=== PATIENT | female | born 1980 | race African-American/Black ===

== ENCOUNTER 2019-12-21 14:24 | Outpatient (CLI) | payer OTHER, SELFPAY ==
[2019-12-21 15:32] LABS: Free T4 Free Thyroxine 0.99 ng/mL (0.78-2.19)
[2019-12-21 15:49] LABS: HIV 1/2 Ab P24 Ag Result Negative (Negative); Hepatitis C Virus Antibody Negative (Negative)
[2019-12-22 08:43] LABS: Rapid Plasma Reagin Non-Reactive (NonReactive)
[2019-12-22 12:33] LABS: Hepatitis B Surface Antigen Negative (Negative)
[2019-12-24 15:41] LABS: HSV 1 IgM Screen Negative (Negative); HSV 2 IgM Screen Negative (Negative)
== END 2019-12-21 14:25 | disposition home or self-care (01) ==
LOC: ANHLAB 14:26
PROVIDERS: PCP Student in an Organized Health Care Education/Training Program; Visit Provider Student in an Organized Health Care Education/Training Program
DX: E04.9 Nontoxic goiter, unspecified (principal); N89.8 Other specified noninflammatory disorders of vagina
CPT/HCPCS: 36415; 84439; 84443; 86592; 86695; 86696; 86703; 86803; 87340; G0432

== ENCOUNTER 2020-03-12 20:12 | Emergency (ER) | payer OTHER, SELFPAY ==
[2020-03-12 20:14] VITALS: BP 163/95; PULSE 75; RESP 18; TEMP 36.7; O2SAT 100
--- NOTE | 2020-03-12 21:55 | ED.GENADULT ---
HPI - General Adult General Chief complaint: Unspecified Stated complaint: SOMETHING BIT ME Time Seen by Provider: 03/12/20 20:17 History of Present Illness HPI narrative: Patient is a 40-year-old female who presents to the ER with infection to her right jaw. Noticed 2 days ago that she was having pain in the small bump. Since growing in size. She has pain that goes down her right neck gets worse with turning her head to the left. She also notes some bumps under her ear. No fevers or chills or sweats. She has had some mild drainage. Related Data Home Medications Medication Instructions Recorded Confirmed hydrochlorothiazide 50 mg tablet 50 mg PO DAILY 12/21/19 omeprazole 40 mg capsule,delayed 40 mg PO DAILY 12/21/19 release fluticasone propionate INTRANASAL 03/12/20 loratadine mg 03/12/20 sumatriptan succinate mg PO 03/12/20 topiramate 03/12/20 03/12/20 Allergies Allergy/AdvReac Type Severity Reaction Status Date / Time aspirin Allergy Unknown Hives Verified 03/12/20 20:21 ibuprofen Allergy Unknown Hives Verified 03/12/20 20:21 Review of Systems Constitutional: Constitutional: Denies chills, Denies fever(s) and Denies weakness Integumentary/Breasts: Comments: Abscess right jaw PMFSH Past Medical History Medical History (Updated 03/12/20 @ 21:58 by Ky Hollins MD) Acid reflux High blood pressure Thyroid disorder Surgical History Surgical History (Updated 12/21/19 @ 13:57 by Merline Anthony CMA) deliv NOS-unsp History of tubal ligation [place] teeth removed Family History Family History (Updated 12/21/19 @ 13:52 by Lilia Lamar MA) Grandparent Heart disease Diabetes mellitus Mother High cholesterol Exam Narrative: Exam Narrative: GENERAL: Well-appearing, well-nourished, and in no acute distress. HEAD: Normocephalic, atraumatic. ENT: Mucous membranes moist. Abscess right jaw with surrounding cellulitis. NECK: Tender lymphadenopathy in the right cervical chain. NEURO: Alert and oriented x3. PSYCH: Normal mood and affect. Course Vital Signs Vital signs: Vital Signs Temperature 98.1 F 03/12/20 20:14 Pulse Rate 75 03/12/20 20:14 Respiratory Rate 18 03/12/20 20:14 Blood Pressure 163/95 H 03/12/20 20:14 Pulse Oximetry 100 03/12/20 20:14 Temperature 98.1 F 03/12/20 20:14 Pulse Rate 75 03/12/20 20:14 Respiratory Rate 18 03/12/20 20:14 Blood Pressure 163/95 H 03/12/20 20:14 Pulse Oximetry 100 03/12/20 20:14 Procedures Abscess I/D face: Date of Incision: 03/12/20 Time of Incision: 21:40 Side (if applicable): right Local Anesthetic: lidocaine 1% and with epi Amount of anesthesia used (mL): 6 Technique: incised with #11 blade Irrigation: No Packing used?: plain I&D Results: Pus Medical Decision Making Vital Signs Vital Signs: Vital Signs Temperature 98.1 F 03/12/20 20:14 Pulse Rate 75 03/12/20 20:14 Respiratory Rate 18 03/12/20 20:14 Blood Pressure 163/95 H 03/12/20 20:14 Pulse Oximetry 100 03/12/20 20:14 Temperature 98.1 F 03/12/20 20:14 Pulse Rate 75 03/12/20 20:14 Respiratory Rate 18 03/12/20 20:14 Blood Pressure 163/95 H 03/12/20 20:14 Pulse Oximetry 100 03/12/20 20:14 Discharge Plan Discharge Clinical Impression: Abscess Patient Disposition: Home, Self-Care Condition: Stable Instructions: Abscess (ED) Additional Instructions: Return to the ER if you have increased pain, you have worsening drainage, you cannot open your mouth or swallow, give additional concerns. Prescriptions: New hydrocodone-acetaminophen 5-325 mg tablet 1 tablet PO Q6H PRN (Reason: pain) Qty: 10 RF: 0 sulfamethoxazole-trimethoprim [Bactrim DS] 800-160 mg tablet 1 tablet PO Q12H Qty: 20 RF: 0 No Action hydrochlorothiazide 50 mg tablet 50 mg PO DAILY RF: 0 omeprazole 40 mg capsule,delayed release(
[2020-03-12 22:06] VITALS: BP 150/105; PULSE 83; RESP 15; O2SAT 100
== END 2020-03-12 22:00 | disposition home or self-care (01) ==
PROVIDERS: Emergency Provider Emergency Medicine; PCP Student in an Organized Health Care Education/Training Program
DX: M27.2 Inflammatory conditions of jaws (principal); I10 Essential (primary) hypertension
CPT/HCPCS: 10060; 99283; A9270

== ENCOUNTER 2020-04-30 10:54 | Outpatient (CLI) | payer OTHER, SELFPAY ==
--- NOTE | ~2020-04-30 | MM_ITS ---
EXAMINATION: MM screening elsy BI w danielle HISTORY: Screening TECHNIQUE: Craniocaudal and mediolateral oblique 3-D tomosynthesis images were obtained and synthetic 2-D images were generated. CAD analysis was submitted and interpreted. COMPARISON: Comparison to multiple prior studies sequentially, with oldest reviewed study dated 08/2017. BREAST PARENCHYMAL COMPOSITION: There are scattered areas of fibroglandular density. FINDINGS: There is no evidence of suspicious mass, calcification, or architectural distortion to sugg est malignancy in either breast. There has been no suspicious interval change. IMPRESSION: 1. No mammographic evidence of malignancy. 2. Recommend routine screening mammography in one year. BI-RADS Category 1: Negative Reviewed, dictated and finalized at location A.
== END 2020-04-30 10:55 | disposition home or self-care (01) ==
PROVIDERS: PCP Physician Assistant; Visit Provider Physician Assistant
DX: Z12.31 Encounter for screening mammogram for malignant neoplasm of breast (principal)
CPT/HCPCS: 77063; 77067

== ENCOUNTER 2020-08-03 14:41 | Emergency (ER) | payer OTHER, SELFPAY ==
[2020-08-03 14:44] VITALS: BP 163/100; PULSE 75; RESP 18; TEMP 36.3; O2SAT 100
--- NOTE | 2020-08-03 15:21 | ED.SKABFB ---
HPI - Skin/Abscess/Foreign Bdy General Chief complaint: Skin/Abscess/Foreign Body Stated complaint: pain and swelling to left side Time Seen by Provider: 08/03/20 14:55 Source: patient Mode of arrival: ambulatory Limitations: no limitations History of Present Illness HPI narrative: This is a 40 year old female that presents to the ER for abscess x 4 days. Reports a tender area to the left lateral chest. Denies fever or drainage. Related Data Home Medications Medication Instructions Recorded Confirmed omeprazole 40 mg capsule,delayed 40 mg PO DAILY 12/21/19 03/20/20 release fluticasone propionate INTRANASAL 03/12/20 03/20/20 loratadine mg 03/12/20 03/20/20 sumatriptan succinate mg PO 03/12/20 03/20/20 topiramate 03/12/20 03/20/20 acyclovir 08/03/20 ferrous sulfate mg 08/03/20 hydrochlorothiazide 08/03/20 ketoconazole applic TOPICAL 08/03/20 multivitamin with iron tablet 08/03/20 [Tab-A-Rosalba/Iron] Allergies Allergy/AdvReac Type Severity Reaction Status Date / Time aspirin Allergy Unknown Hives Verified 08/03/20 14:55 ibuprofen Allergy Unknown Hives Verified 08/03/20 14:55 Review of Systems Review of Systems: Narrative: CONSTITUTIONAL: Denies fever SKIN: Reports abscess All systems reviewed & are unremarkable except as noted in HPI and below PMFSH Past Medical History Medical History (Updated 08/03/20 @ 16:20 by Lacey Perez PA-C) Acid reflux Arthritis FHx: migraine headaches High blood pressure Thyroid disorder Surgical History Surgical History deliv NOS-unsp History of tubal ligation [place] teeth removed Family History Family History Grandparent Heart disease Diabetes mellitus Mother High cholesterol Social History Social History Smoking status: Former smoker Alcohol intake: current Drinks per week: 2 Gender identity (if verbalized by the patient): Female Exam Narrative: Exam Narrative: GENERAL: Well-appearing, well-nourished, and in no acute distress. HEAD: Normocephalic, atraumatic. EYES: EOMI. EXTREMITIES: Normal range of motion. No edema. Left lateral chest with 6cm area of erythema and induration with central punctum SKIN: Warm, dry, no rash. NEURO: No focal deficits. Alert and oriented x3. PSYCH: Normal mood and affect Course Vital Signs Vital signs: Vital Signs Temperature 97.3 F L 08/03/20 14:44 Pulse Rate 75 08/03/20 14:44 Respiratory Rate 18 08/03/20 14:44 Blood Pressure 163/100 H 08/03/20 14:44 Pulse Oximetry 100 08/03/20 14:44 Temperature 97.3 F L 08/03/20 14:44 Pulse Rate 75 08/03/20 14:44 Respiratory Rate 18 08/03/20 14:44 Blood Pressure 163/100 H 08/03/20 14:44 Pulse Oximetry 100 08/03/20 14:44 Procedures Abscess I/D chest: Date of Incision: 08/03/20 Time of Incision: 16:18 Side (if applicable): left Local Anesthetic: lidocaine 1% and with epi Amount of anesthesia used (mL): 3 Technique: incised with #11 blade Packing used?: none I&D Results: Pus and Blood MDM - Skin/Abscess/Foreign Bdy MDM Narrative Medical decision making narrative: Patient presents to the ER for small abscess to the left lateral chest. She is afebrile and nontoxic appearing. Abscess successfully drained. Will be started on oral antibiotics. Was given warnings to return to the ER Critical Care Time Critical Care Time Critical Care Time: No Discharge Plan Discharge Clinical Impression: Abscess Patient Disposition: Home, Self-Care Condition: Stable Instructions: Antibiotic Form, Abscess (ED) Additional Instructions: Return if symptoms worsen or concerns: any increase in redness, swelling, pain, or fever over 101 Take antibiotics as directed. Clean wound with mild soapy water. Apply antibiotic oin
== END 2020-08-03 16:34 | disposition home or self-care (01) ==
PROVIDERS: Emergency Provider Emergency Medicine; PCP Physician Assistant
DX: L02.213 Cutaneous abscess of chest wall (principal); M19.90 Unspecified osteoarthritis, unspecified site; I10 Essential (primary) hypertension; E07.9 Disorder of thyroid, unspecified; Z87.891 Personal history of nicotine dependence
CPT/HCPCS: 10060; 99283

== ENCOUNTER 2020-12-07 15:45 | Emergency (ER) | payer OTHER, SELFPAY ==
--- NOTE | ~2020-12-07 | CT_ITS ---
EXAMINATION: CT abdomen pelvis wo con DATE: 12/07/2020 16:23 INDICATION: Lower abdominal pain TECHNIQUE: Computed tomography (CT) of the abdomen and pelvis was performed without intravenous contr ast. The dose-length product (DLP) was 191.46 mGy-cm. Automated exposure control and iterative recons truction technique were employed. COMPARISON: 11/05/2012 FINDINGS: The lung bases are clear. The heart size is normal. The liver, spleen, pancreas, gallbladde r, and adrenal glands are normal. There is a 2 mm nonobstructing stone in the upper pole of the right kidney. The left kidney is unremarkable. There is no hydronephrosis or hydroureter. The appendix is normal. No pathologically enlarged abdominal or pelvic lymph nodes are identified. There is no free i ntraperitoneal gas or evidence of bowel obstruction. IMPRESSION: 1. No CT correlate for the patient's symptoms. Reviewed, dictated and finalized at location A.
[2020-12-07 15:47] VITALS: BP 138/89; PULSE 78; RESP 16; TEMP 36.6; O2SAT 100
--- NOTE | 2020-12-07 16:17 | ED.GENADULT ---
HPI - General Adult General Chief complaint: Urogenital-Female Stated complaint: pelvic pain Time Seen by Provider: 12/07/20 15:55 Source: patient and RN notes reviewed Mode of arrival: ambulatory Limitations: no limitations History of Present Illness HPI narrative: Patient is a 40-year-old female who presents to emergency department with right lower quadrant abdominal pain for the last 2 weeks off and on which is worsened today patient saw primary care was reassured but continues to have the pain pain radiates to the right flank patient denies change in bowel habits or hematuria patient on arrival appears uncomfortable but not distressed has not taken anything for her symptoms today Related Data Home Medications Medication Instructions Recorded Confirmed sumatriptan succinate mg PO 03/12/20 03/20/20 topiramate 03/12/20 03/20/20 ferrous sulfate mg 08/03/20 hydrochlorothiazide 08/03/20 fluticasone propionate INTRANASAL 12/07/20 loratadine mg 12/07/20 Allergies Allergy/AdvReac Type Severity Reaction Status Date / Time aspirin Allergy Unknown Hives Verified 12/07/20 15:45 ibuprofen Allergy Unknown Hives Verified 12/07/20 15:45 Review of Systems Review of Systems: All systems reviewed & are unremarkable except as noted in HPI and below PMFSH Past Medical History Medical History (Updated 12/07/20 @ 18:03 by Neymar Adrian PA-C) Acid reflux Arthritis FHx: migraine headaches High blood pressure Thyroid disorder Surgical History Surgical History deliv NOS-unsp History of tubal ligation [place] teeth removed Family History Family History Grandparent Heart disease Diabetes mellitus Mother High cholesterol Social History Social History Smoking status: Former smoker Alcohol intake: current Drinks per week: 2 Gender identity (if verbalized by the patient): Female Exam Narrative: Exam Narrative: GENERAL: Well-appearing, well-nourished, and in no acute distress. HEAD: Normocephalic, atraumatic. EYES: PERRLA and EOMI. ENT: Nares clear, no rhinorrhea or epistaxis. Mucous membranes moist. CHEST: Clear to auscultation. No respiratory distress. No wheezes rales or rhonchi HEART: Regular rate and rhythm. No murmur heard. Normal peripheral pulses. ABDOMEN: Soft, right lower quadrant abdominal tenderness without rebound or guarding, nondistended, normal active bowel sounds. EXTREMITIES: Normal range of motion. No edema. SKIN: Warm, dry, no rash. NEURO: No focal deficits. Alert and oriented x3. PSYCH: Normal mood and affect. Course Course Emergency Course: Patient evaluated emergency department found to have urinary tract infection as late etiology of her symptoms will be discharged with outpatient follow-up ABCs and vital signs intact and stable hydrated and given antibiotics in the emergency department felt appropriate for outpatient reevaluation Vital Signs Vital signs: Vital Signs Temperature 97.9 F 12/07/20 15:47 Pulse Rate 78 12/07/20 15:47 Respiratory Rate 16 12/07/20 15:47 Blood Pressure 138/89 12/07/20 15:47 Pulse Oximetry 100 12/07/20 15:47 Temperature 97.9 F 12/07/20 15:47 Pulse Rate 58 L 12/07/20 16:52 Respiratory Rate 18 12/07/20 16:52 Blood Pressure 125/84 12/07/20 16:52 Pulse Oximetry 100 12/07/20 16:52 Medical Decision Making [facility] Narrative Medical decision making narrative: Patient in the room in no distress aware of case findings treatment plan and diagnosis felt appropriate for outpatient reevaluation Vital Signs Vital Signs: Vital Signs Temperature 97.9 F 12/07/20 15:47 Pulse Rate 78 12/07/20 15:47 Respiratory Rate 16 12/07/20 15:47 Blood Pressure 138/89 12/07/20 15:47 Pulse Oximetry 100 12/07/20 15:47 Temperature 97.9 F 12/07/20 15:
[2020-12-07 16:29] LABS: Hematocrit 32.5 % (37.0-47.0); Hemoglobin 9.8 g/dL (12.0-15.0); Mean Corpuscular HGB Conc 30.2 g/dl (32-36); Mean Corpuscular Volume 79.7 fl (80-100); Mean Platelet Volume 11.2 fl (7.4-10.4); Platelet Count Result 212 k/mm3 (150-375); Red Blood Count 4.08 M/mm3 (4.2-5.4); Red Cell Distribution Width 17.2 % (11.5-14.5); White Blood Count 5.7 K/mm3 (4.5-10.0)
[2020-12-07] MEDS: SODIUM CHLORIDE 0.9% IV 1,000 ML 999 ML IV CONT (16:41)
[2020-12-07 16:45] LABS: Eosinophils Absolute Manual 0.11 K/mm3 (0.02-0.5); Eosinophils Percent Manual 2 % (0-4); Lymphocytes Absolute Manual 1.99 K/mm3 (1.1-4.5); Lymphocytes Percent Manual 35 % (18-44); Monocytes Absolute Manual 0.28 K/mm3 (0.1-0.90); Monocytes Percent Manual 5 % (3-9); Neutrophils Percent Manual 58 % (46-73); Total Cells Counted 100
[2020-12-07 16:49] LABS: Anion Gap 3 mmol/L (8-16); Blood Urea Nitrogen 7 mg/dL (7-17); Calcium 8.7 mg/dL (8.4-10.2); Carbon Dioxide 28 mmol/L (22-30); Chloride 108 mmol/L (98-107); Estimated CRCL calculation 75 ml/min; Estimated Glomerular Filt Rate > 60; Glucose 84 mg/dL (65-105); Potassium 3.5 mmol/L (3.4-5.0); Sodium 139 mmol/L (137-145)
[2020-12-07 16:52] VITALS: BP 125/84; PULSE 58; RESP 18; O2SAT 100
[2020-12-07 16:54] LABS: Ovalocytes 1+ (NORMAL); Platelet Estimate Adequate (Adequate)
[2020-12-07 17:11] VITALS: TEMP 36.6
[2020-12-07 17:46] LABS: Add Urine Microscopic? YES; Appearance Urine Cloudy (Clear); Bacteria Urine Trace /hpf; Bilirubin Urine Negative (Negative); Blood Urine Negative (Negative); Color Urine Yellow (Yellow); Glucose Urine UA Negative (Negative); Ketones Urine Negative (Negative); Leukocyte Esterase Ur 2+ LEU/UL (Negative); Mucus Urine Heavy /lpf; Nitrate Urine Positive (Negative); Protein Urine Negative (Negative); Specific Grav Ur 1.018 (1.001-1.035); Squamous Epithelial Cell Urine Many /hpf (Few); WBC Urine 31-50 /hpf
[2020-12-07 18:14] VITALS: BP 144/89; PULSE 62; RESP 20; O2SAT 100
== END 2020-12-07 18:16 | disposition home or self-care (01) ==
PROVIDERS: Emergency Medicine Emergency Medical Services; Emergency Provider Emergency Medicine; PCP Physician Assistant
DX: N39.0 Urinary tract infection, site not specified (principal); K21.9 Gastro-esophageal reflux disease without esophagitis; M19.90 Unspecified osteoarthritis, unspecified site; I10 Essential (primary) hypertension; E07.9 Disorder of thyroid, unspecified; Z87.891 Personal history of nicotine dependence
CPT/HCPCS: 36415; 74176; 80048; 81001; 85025; 87077; 87086; 87088; 87186; 96365; 96375; 99284; J0131; J0696; J7030

== ENCOUNTER 2020-12-20 11:10 | Outpatient (CLI) | payer OTHER, SELFPAY ==
--- NOTE | ~2020-12-20 | US_ITS ---
EXAMINATION: US pelvic complete w TV EXAM DATE: 12/20/2020 11:03 INDICATION: R10.2 - Pelvic and perineal pain. TECHNIQUE: Pelvic transabdominal and transvaginal sonogram was performed. There are multiple graysca le and Doppler images available for interpretation. Comparison is made to prior examination from 01/02. FINDINGS: Uterus measures 10.4 x 5.4 x 4.5 cm, and is morphologically normal. Endometrial stripe me asures 18 mm, mildly thickened. There is a nabothian cyst. There is no free pelvic fluid. Right adnexa: The ovary measures 2.1 x 2.0 x 1.4 cm and is morphologically normal. Ovarian vascular f low confirmed. Left adnexa: The ovary measures 3.0 x 2.5 x 2.4 cm and is morphologically normal. Ovarian vascular fl ow confirmed. IMPRESSION: Mildly thickened endometrium, probably phasic but consider 6-12 week follow-up pelvic son ogram. Reviewed, dictated and finalized at location B. IMPRESSION: Mildly thickened endometrium, probably phasic but consider 6-12 wee k follow-up pelvic sonogram.
[2020-12-20 12:33] LABS: Hepatitis B Surface Antigen Negative (Negative)
[2020-12-20 12:34] LABS: HIV 1/2 Ab P24 Ag Result Negative (Negative)
[2020-12-20 12:50] LABS: Hepatitis C Virus Antibody Negative (Negative)
[2020-12-23 07:58] LABS: Rapid Plasma Reagin Non-Reactive (NonReactive)
== END 2020-12-20 11:11 | disposition home or self-care (01) ==
PROVIDERS: PCP Physician Assistant; Referring Provider Obstetrics & Gynecology; Visit Provider Student in an Organized Health Care Education/Training Program
DX: R10.2 Pelvic and perineal pain (principal); Z20.2 Contact with and (suspected) exposure to infections with a predominantly sexual mode of transmission
CPT/HCPCS: 36415; 76830; 76856; 86592; 86703; 86803; 87340; G0432

== ENCOUNTER 2021-01-09 11:01 | Outpatient (CLI) | payer OTHER, SELFPAY ==
[2021-01-09 12:12] LABS: HIV 1/2 Ab P24 Ag Result Negative (Negative)
[2021-01-09 12:30] LABS: Hepatitis B Surface Antigen Negative (Negative)
[2021-01-09 12:47] LABS: Hepatitis C Virus Antibody Negative (Negative)
[2021-01-10 09:27] LABS: Rapid Plasma Reagin Non-Reactive (NonReactive)
[2021-01-15 16:32] LABS: HSV 1 IgM Screen Negative (Negative); HSV 2 IgM Screen Negative (Negative)
== END 2021-01-09 11:02 | disposition home or self-care (01) ==
LOC: ANHLAB 11:02
PROVIDERS: PCP Physician Assistant; Visit Provider Student in an Organized Health Care Education/Training Program
DX: Z11.3 Encounter for screening for infections with a predominantly sexual mode of transmission (principal)
CPT/HCPCS: 36415; 86592; 86695; 86696; 86703; 86803; 87340; G0432

== ENCOUNTER 2021-11-05 11:01 | Outpatient (CLI) | payer OTHER, SELFPAY ==
--- NOTE | ~2021-11-05 | XR_ITS ---
EXAMINATION: XR chest 2V DATE: 11/05/2021 11:22 INDICATION: Midline chest pain. TECHNIQUE: Frontal and lateral views of the chest were obtained. COMPARISON: Chest 2 views 06/03/2017, CT abdomen and pelvis 12/07/2020 FINDINGS: The chest demonstrates clear lungs without pneumonia, pleural effusion, or pneumothorax. Th e heart size is normal. IMPRESSION: 1. No acute cardiopulmonary disease. Reviewed, dictated and finalized at location B.
--- NOTE | 2021-11-05 11:29 | ECG_ITS ---
Measurements Intervals [place] Rate: 66 P: 60 MD: 140 QRS: 50 QRSD: 77 T: 11 QT: 405 QTc: 426 Interpretive Statements SINUS RHYTHM BASELINE ARTIFACT NONSPECIFIC ST ABNORMALITY BORDERLINE ECG NO PREVIOUS ECG AVAILABLE FOR COMPARISON Electronically Signed On 11-05-2021 18:05:45 CDT by Nathaniel Carmichael M.D.
== END 2021-11-05 11:02 | disposition home or self-care (01) ==
PROVIDERS: PCP Physician Assistant; Visit Provider Physician Assistant
DX: R07.89 Other chest pain (principal); R94.31 Abnormal electrocardiogram [ECG] [EKG]
CPT/HCPCS: 71046; 93005

== ENCOUNTER 2021-11-18 07:49 | Outpatient (CLI) | payer OTHER, SELFPAY ==
--- NOTE | 2021-11-18 | EST_ITS ---
Patient Info Name: Maddi Vargas Age: 41 years : 1980 Gender: Female Ht: 74 in Wt: 172 lbs BSA: 2.01 m2 HR: 68 bpm BP: 150 / 96 mmHg Heart Rhythm: Sinus Rhythm Exam Date: 11/18/2021 9:35 AM Exam Location: [facility] Patient Status: Outpatient Admit Date: 11/18/2021 Staff Ordering Physician: JohnathanShantal Attending Provider: JohnathanShantal Exercise Technologist: [place] CT Nurse: MARISOL GREER Exam Type: CA stress test treadmill Study Info Indications R07.9 - Chest pain, unspecified A treadmill exercise stress test was performed. Summary 1. Abnormal ST segment depression consistent with myocardial ischemia. Protocol: [facility] ECG Details Stage: REST Duration (min): 0 min : 55 sec Speed (mph): 0.0 Grade (%): 0 HR (bpm): 67 SBP (mmHg): 150 DBP (mmHg): 96 METS: --- Stage: REST Duration (min): 6 min : 3 sec Speed (mph): 0.0 Grade (%): 0 HR (bpm): 88 SBP (mmHg): 150 DBP (mmHg): 96 METS: --- Stage: STAGE 1 Duration (min): 1 min : 0 sec Speed (mph): 1.7 Grade (%): 10 HR (bpm): 110 SBP (mmHg): 150 DBP (mmHg): 96 METS: --- Stage: STAGE 1 Duration (min): 2 min : 0 sec Speed (mph): 1.7 Grade (%): 10 HR (bpm): 135 SBP (mmHg): 150 DBP (mmHg): 96 METS: --- Stage: STAGE 1 Duration (min): 3 min : 0 sec Speed (mph): 1.7 Grade (%): 10 HR (bpm): 141 SBP (mmHg): 172 DBP (mmHg): 81 METS: --- Stage: STAGE 2 Duration (min): 1 min : 0 sec Speed (mph): 2.5 Grade (%): 12 HR (bpm): 151 SBP (mmHg): 172 DBP (mmHg): 81 METS: --- Stage: STAGE 2 Duration (min): 2 min : 0 sec Speed (mph): 2.5 Grade (%): 12 HR (bpm): 158 SBP (mmHg): 183 DBP (mmHg): 81 METS: --- Stage: STAGE 2 Duration (min): 3 min : 0 sec Speed (mph): 2.5 Grade (%): 12 HR (bpm): 163 SBP (mmHg): 183 DBP (mmHg): 81 METS: --- Stage: STAGE 3 Duration (min): 1 min : 0 sec Speed (mph): 3.4 Grade (%): 14 HR (bpm): 168 SBP (mmHg): 169 DBP (mmHg): 81 METS: --- Stage: STAGE 3 Duration (min): 1 min : 25 sec Speed (mph): 3.4 Grade (%): 14 HR (bpm): 172 SBP (mmHg): 169 DBP (mmHg): 81 METS: --- Stage: RECOVERY Duration (min): 0 min : 34 sec Speed (mph): 0.0 Grade (%): 0 HR (bpm): 168 SBP (mmHg): 169 DBP (mmHg): 81 METS: --- Stage: RECOVERY Duration (min): 1 min : 34 sec Speed (mph): 0.0 Grade (%): 0 HR (bpm): 128 SBP (mmHg): 169 DBP (mmHg): 81 METS: --- Stage: RECOVERY Duration (min): 2 min : 34 sec Speed (mph): 0.0 Grade (%): 0 HR (bpm): 109 SBP (mmHg): 180 DBP (mmHg): 82 METS: --- Stage: RECOVERY Duration (min): 3 min : 34 sec
== END 2021-11-18 07:50 | disposition home or self-care (01) ==
LOC: ANHCARD 07:50
PROVIDERS: PCP Physician Assistant; Visit Provider Physician Assistant
DX: R07.89 Other chest pain (principal)
CPT/HCPCS: 93017

== ENCOUNTER 2022-02-17 09:46 | Outpatient (CLI) | payer OTHER, SELFPAY ==
--- NOTE | 2022-02-17 09:50 | ECHO_ITS ---
Patient Info Name: Maddi Vargas Age: 42 years : 1980 Gender: Female Ht: 62 in Wt: 171 lbs BSA: 1.87 m2 HR: 62 bpm BP: 168 / 117 mmHg Technical Quality: Good Exam Date: 02/17/2022 10:21 AM Exam Location: [facility] Patient Status: Outpatient Admit Date: 02/17/2022 Staff Ordering Physician: Glen Calvin DO Policy Issue Clerk: Sudhakar Murphy RDCS Attending Provider: Glen Clavin DO Referring Physician: Nikunj LIANG; Exam Type: CA echo doppler color flow Study Info Indications R06.00 - Dyspnea, unspecified Complete two-dimensional, color flow and Doppler transthoracic echocardiogram is performed. Summary 1. Complete two-dimensional, color flow and Doppler transthoracic echocardiogram is performed. 2. Left ventricular chamber dimension is normal. 3. Left ventricular systolic function is normal, estimated at 55-60%. 4. There is mildly increased left ventricular wall thickness. 5. The left ventricular diastolic function is abnormal. 6. E/e' 11 is mildly elevated. Left Ventricle E/e' 11 is mildly elevated. Left ventricular chamber dimension is normal. Left ventricular systolic function is normal, estimated at 55-60%. There is mildly increased left ventricular wall thickness. The left ventricular diastolic function is abnormal. Right Ventricle Right ventricular chamber dimension is normal. Right ventricular systolic function is normal. Left Atria Left atrial chamber dimension is normal. Right Atria Right atrial chamber dimension is normal. Aortic Valve The aortic valve is trileaflet. There is no aortic valve stenosis. There is no aortic valve regurgitation. Pulmonic Valve There is no pulmonic regurgitation. Mitral Valve There is no mitral valve stenosis. There is no mitral valve regurgitation. Tricuspid Valve There is no tricuspid valve regurgitation. Pericardium/Pleural There is no pericardial effusion. Inferior Vena Cava Normal inferior vena cava with >50% collapse upon inspiration consistent with normal right atrial pressure, 5 mmHg. Aorta The aortic root size at the sinus of Valsalva is normal. Left Ventricular Outflow Tract Name Value Normal LVOT 2D LVOT Diameter 2.0 cm LVOT Doppler LVOT Peak Gradient 3 mmHg LVOT Mean Gradient 2 mmHg LVOT VTI 20 cm LVOT VTI/AV VTI Ratio 1.1 LVOT Stroke Volume 61 ml LVOT CO 3.6 l/min LVOT CI 1.9 l/min/m2 Mitral Valve Name Value Normal MV Doppler MV Peak Gradient 6 mmHg MV Mean Gradient 2 mmHg MV Decel [place] 620 cm/s2 MV PHT
== END 2022-02-17 09:47 | disposition home or self-care (01) ==
LOC: ANHCARD 09:47
PROVIDERS: PCP Physician Assistant; Visit Provider Internal Medicine Cardiovascular Disease
DX: R06.00 Dyspnea, unspecified (principal)
CPT/HCPCS: 93306

== ENCOUNTER 2022-04-03 07:53 | Emergency (ER) | payer OTHER, SELFPAY ==
[2022-04-03] VITALS (13 sets, daily range): BP systolic 114–141; BP diastolic 67–103; PULSE 70–76; RESP 16–67; TEMP 36.4; O2SAT 96–100
--- NOTE | ~2022-04-03 | CT_ITS ---
EXAMINATION: CT abdomen pelvis wo con DATE: 04/03/2022 10:33 INDICATION: Right flank pain TECHNIQUE: Computed tomography (CT) of the abdomen and pelvis was performed without intravenous contr ast. The dose-length product (DLP) was 394.20 mGy-cm. Automated exposure control and iterative recons truction technique were employed. COMPARISON: 12/07/2020 FINDINGS: The lung bases are clear. The heart size is normal. The liver, spleen pancreas, gallbladder , and adrenal glands are normal. The kidneys are unremarkable. No stones are identified in the kidney s, ureters, or bladder. There is no hydronephrosis or hydroureter. There are multiple phleboliths of the pelvis. No pathologically enlarged abdominal or pelvic lymph nodes are identified. There is no fr ee intraperitoneal gas or evidence of bowel obstruction. The appendix is normal. There is mild lumbar spondylosis. IMPRESSION: 1. No CT correlate for the patient's symptoms. Reviewed, dictated and finalized at location B.
--- NOTE | ~2022-04-03 | XR_ITS ---
EXAMINATION: XR hip RT 2V w AP pelvis DATE: 04/03/2022 08:29 INDICATION: One week of nontraumatic right hip pain TECHNIQUE: Anteroposterior view of the pelvis and anteroposterior and frog-leg lateral views of the r ight hip were obtained. COMPARISON: 06/06/2019 FINDINGS: Alignment is normal. No fracture or suspected avascular necrosis. Bilateral hip and sacroiliac joint spaces are normal. Transitional lumbosacral segment. Multiple phleboliths in the pelvis. IMPRESSION: 1. Transitional lumbosacral segment. Otherwise unremarkable pelvis and right hip radiographs. Reviewed, dictated and finalized at location A. IMPRESSION: 1. Transitional lumbosacral segment. Otherwise unremarkable pelvis and right hi p radiographs.
--- NOTE | 2022-04-03 08:51 | ED.BACK ---
HPI - Back Pain/Injury General Chief Complaint: Back Pain/Injury Stated Complaint: right sided lower back pain and knee pain Time Seen by Provider: 04/03/22 08:00 Source: patient and RN notes reviewed Mode of arrival: ambulatory Limitations: no limitations History of Present Illness HPI Narrative: This is a 42 year old female who presents for evaluation of right lower back pain that has been present for over 2 weeks. She reports pain is intermittent, and it is located right lower back and radiates to her right knee. Her pain seem worse with walking and bearin weight. She took tylenol for her pain yesterday. She denies leg weakness, numbness, tingling, abdominal pain, fever, chills, dysuria or hematuria. She denies urinary retention. She denies any fall or trauma. Related Data Home Medications Medication Instructions Recorded Confirmed sumatriptan succinate 100 mg tablet mg PO 03/12/20 03/13/22 topiramate 25 mg tablet 03/12/20 03/13/22 fluticasone propionate 50 intranasal 12/07/20 03/13/22 mcg/actuation nasal spray,suspension loratadine 10 mg tablet mg 12/07/20 03/13/22 acetaminophen 500 mg tablet 500 mg PO Q6H PRN 01/09/21 03/13/22 (Tylenol Extra Strength) Allergies Allergy/AdvReac Type Severity Reaction Status Date / Time aspirin Allergy Unknown Hives Verified 03/13/22 09:10 ibuprofen Allergy Unknown Hives Verified 03/13/22 09:10 Review of Systems Review of Systems: All systems reviewed & are unremarkable except as noted in HPI and below Constitutional: Constitutional: Denies chills, Denies fatigue and Denies fever(s) Cardiovascular: Cardiovascular: Denies chest pain Respiratory: Respiratory: Denies chest congestion and Denies cough Gastrointestinal: Gastrointestinal: Reports abdominal pain, Reports nausea and Denies vomiting Genitourinary: Genitourinary: Denies dysuria and Reports flank pain Musculoskeletal: Musculoskeletal: Reports back pain PMFSH Past Medical History Medical History Acid reflux Arthritis Chest pain FHx: migraine headaches High blood pressure History of gonorrhea Thyroid disorder Surgical History Surgical History deliv NOS-unsp History of tubal ligation [place] teeth removed Family History Family History Grandparent Heart disease Diabetes mellitus Mother High cholesterol Social History Social History Smoking status: Former smoker Alcohol intake: current Drinks per week: 2 Gender identity (if verbalized by the patient): Female Exam Const: General: no acute distress and alert Nutritional Appearance: well nourished Orientation/consciousness: patient oriented x3 Limitations: no limitations HENMT: Ears: external ears normal Eyes: EOM: EOMs intact bilaterally Chest: Chest palpation & inspection: normal inspection of the chest Resp: Effort & Inspection: normal respiratory effort Auscultation: clear to auscultation bilaterally Cardio: Rate: regular rate Rhythm: regular rhythm Heart sounds: no murmurs GI: GI Palp: Yes Soft to palpation, No Tenderness to palpation present (GI), No Guarding due to palpation present (GI) and No Rigid due to palpation Auscultation: normal bowel sounds Skin: General skin exam: normal color Rashes: no rashes Neuro: General: patient oriented x3, moves all extremities and CN's II-XI intact bilaterally Extrem: General: normal to inspection Psych: Mental Status: mental status grossly normal Affect: normal affect Course Reevaluation(s) Reevaluation #1: I have discussed with patient that CT is unremarkable. HEr pain is likely related to sciatica. I Discussed discharge plan. Date: 04/03/22 Time: 11:08 Vital Signs Vital signs: Vital Signs Temperature 97.6 F
[2022-04-03 10:08] LABS: Appearance Urine Cloudy (Clear); Bilirubin Urine 1+ (Negative); Blood Urine 3+ (Negative); Color Urine Amber (Yellow); Glucose Urine UA Negative (Negative); Ketones Urine Trace mg/dL (Negative); Leukocyte Esterase Ur Negative LEU/UL (Negative); Nitrate Urine Negative (Negative); Protein Urine 1+ mg/dL (Negative); Specific Grav Ur 1.025 (1.001-1.035); pH Urine 6.5 (5.0-9.0)
[2022-04-03 10:20] LABS: Mucus Urine Rare /lpf; RBC Urine >75 /hpf (0-2); Squamous Epithelial Cell Urine Occasional /hpf (Few)
[2022-04-03 10:21] LABS: Add Urine Microscopic? YES
== END 2022-04-03 11:47 | disposition home or self-care (01) ==
PROVIDERS: Emergency Provider General Practice; PCP Physician Assistant
DX: M54.41 Lumbago with sciatica, right side (principal); I10 Essential (primary) hypertension; K21.9 Gastro-esophageal reflux disease without esophagitis; M19.90 Unspecified osteoarthritis, unspecified site; E07.9 Disorder of thyroid, unspecified; Z87.891 Personal history of nicotine dependence
CPT/HCPCS: 73502; 74176; 81001; 99284

== ENCOUNTER 2022-05-07 14:31 | Outpatient (CLI) | payer OTHER, SELFPAY ==
[2022-05-07 15:51] LABS: HIV 1/2 Ab P24 Ag Result Negative (Negative)
[2022-05-07 16:35] LABS: Hepatitis B Surface Antigen Negative (Negative)
[2022-05-07 16:52] LABS: Hepatitis C Virus Antibody Negative (Negative)
[2022-05-08 10:18] LABS: Rapid Plasma Reagin Non-Reactive (NonReactive)
[2022-05-14 08:56] LABS: HSV 1 IgM Screen Negative (Negative); HSV 2 IgM Screen Negative (Negative)
== END 2022-05-07 14:32 | disposition home or self-care (01) ==
LOC: ANHLAB 14:32
PROVIDERS: PCP Physician Assistant; Visit Provider Student in an Organized Health Care Education/Training Program
DX: Z11.3 Encounter for screening for infections with a predominantly sexual mode of transmission (principal)
CPT/HCPCS: 36415; 86592; 86695; 86696; 86703; 86803; 87340; G0432

== ENCOUNTER 2022-07-15 10:15 | Outpatient (RCR) | payer OTHER, SELFPAY ==
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
--- NOTE | 2022-09-17 11:59 | PCPTNOTE ---
PHYSICAL THERAPY DISCHARGE 09-17-22 Attending Provider: JOHN Lewis Patient:Maddi Vargas Date of :1980 Mrs. Vargas has not returned for any further treatments since 07/15/2022, therefore she will be discharged at this time. She received 3 PT sessions, from June 25 to 2021 for the diagnosis of lumbago with R sciatica. The goals were not assessed. Thank you for referring Maddi to [facility].
== END 2022-09-22 13:12 | disposition home or self-care (01) ==
LOC: ANHPT 10:15
PROVIDERS: PCP Physician Assistant; Visit Provider Physician Assistant
DX: M54.41 Lumbago with sciatica, right side (principal)
CPT/HCPCS: 97014; 97110; 97140; 97161; 97530; G0283

== ENCOUNTER 2022-09-24 07:45 | Outpatient (RCR) | payer OTHER, SELFPAY ==
--- NOTE | 2022-09-24 16:58 | PTOPDC ---
Assessment and note entered by Olu Barrett, PT Evaluation Information Assessment Status Discharge Diagnosis low back pain Onset Chronic Subjective Information Patient reports she has not had any change in back pain besides for a few minutes after she is off the E-stim machine. She has been inconsistent with her therapy attendance secondary to she has been having to help watch her grandson. Reported Pain Level Pain Score Severe Pain: Maharaj Hoyos Assessment PT Clinical Summary Maddi is a 42 year old female coming into the clinic for low back pain. She has not had any really change in S/S or measurements, but has also not been consistent with attendance. Recommend if available with her insurance getting a TENS unit to help with pain management. Discharged from skilled physical therapy. Plan of Care PT Services Indicated No Treatment Frequency and Discharged from skilled physical therapy. Duration
== END 2022-12-08 08:38 | disposition home or self-care (01) ==
LOC: ANHPT 07:45
PROVIDERS: PCP Physician Assistant; Visit Provider Physician Assistant
DX: M54.41 Lumbago with sciatica, right side (principal)
CPT/HCPCS: 97014; 97140; G0283

== ENCOUNTER 2022-12-18 07:38 | Emergency (ER) | payer OTHER, SELFPAY ==
--- NOTE | ~2022-12-18 | XR_ITS ---
Left Shoulder Technique: AP and scapular Y views were obtained. Clinical History: Pain Findings: No fracture or dislocation is seen. Osseous alignment is anatomic. The glenohumeral and acr omioclavicular joint spaces are preserved. Soft tissues are unremarkable. Impression: Unremarkable left shoulder radiographs. Reviewed, dictated and finalized at [facility]. Impression: Unremarkable left shoulder radiographs.
[2022-12-18 07:44] VITALS: BP 144/86; PULSE 70; RESP 16; TEMP 36.6; O2SAT 100
[2022-12-18 08:10] VITALS: BP 144/100; PULSE 66; RESP 18; O2SAT 100
[2022-12-18] MEDS: ACETAMINOPHEN 500 MG TABLET 1000 MG PO (08:55)
[2022-12-18 10:53] VITALS: BP 129/91; PULSE 64; RESP 18; O2SAT 100
--- NOTE | 2022-12-18 11:07 | ED.UPPEXIN ---
HPI - Extremity Injury (Upper) General Chief Complaint: Extremity Injury, Upper Stated Complaint: window fell on left shoulder. Time Seen by Provider: 12/18/22 08:29 Source: patient and RN notes reviewed Mode of arrival: ambulatory Limitations: no limitations History of Present Illness HPI narrative: This is a 42 year old female who presents for evaluation of left shoulder injury. PAtient states last night a window fell onto her left shoulder. She has been apply ice but she has not taken anything for pain. Her pain is worse movement. She denies numbness or tingling. She also reports yesterday she was walking in closed toe shoes. She reports she felt like something punctured her left foot. She states she was outside in the dark so she was unable to see anything. She went inside and she removed her shoe. She saw small puncture jazmín to left great toe. Related Data Home Medications Medication Instructions Recorded Confirmed sumatriptan succinate 100 mg tablet mg PO 03/12/20 03/13/22 topiramate 25 mg tablet 03/12/20 03/13/22 fluticasone propionate 50 intranasal 12/07/20 03/13/22 mcg/actuation nasal spray,suspension loratadine 10 mg tablet mg 12/07/20 03/13/22 acetaminophen 500 mg tablet 500 mg PO Q6H PRN 01/09/21 03/13/22 (Tylenol Extra Strength) Allergies Allergy/AdvReac Type Severity Reaction Status Date / Time aspirin Allergy Unknown Hives Verified 07/07/22 09:58 ibuprofen Allergy Unknown Hives Verified 07/07/22 09:58 Review of Systems Constitutional: Constitutional: Denies weakness Cardiovascular: Cardiovascular: Denies syncope, Denies rapid heart rate, Denies irregular heart rhythm, Denies leg edema and Denies dyspnea Respiratory: Respiratory: Denies chest congestion, Denies hemoptysis, Denies excessive phlegm production and Denies dyspnea Gastrointestinal: Gastrointestinal: Denies abdominal pain, Denies hematochezia, Denies diarrhea and Denies vomiting Genitourinary: Genitourinary: Denies hematuria and Denies dysuria Musculoskeletal: Musculoskeletal: Reports arthralgias, Denies joint swelling, Denies loss of height and Denies muscle weakness Neurologic: Denies syncope, Denies focal weakness and Denies weakness PMFSH Past Medical History Medical History Acid reflux Arthritis Chest pain FHx: migraine headaches High blood pressure History of gonorrhea Thyroid disorder Surgical History Surgical History deliv NOS-unsp History of tubal ligation Reardan teeth removed Family History Family History Grandparent Heart disease Diabetes mellitus Mother High cholesterol Social History Social History Smoking status: Former smoker Alcohol intake: current Drinks per week: 2 Gender identity (if verbalized by the patient): Female Exam Const: General: no acute distress and alert Nutritional Appearance: well nourished Orientation/consciousness: patient oriented x3 Limitations: no limitations HENMT: Head: normal to inspection Face and sinus: normal facial exam Mouth: Yes Normal oral and palatal mucosa present Eyes: EOM: EOMs intact bilaterally Neck: Neck: normal visual inspection Resp: Effort & Inspection: normal respiratory effort Auscultation: clear to auscultation bilaterally Cardio: Rate: regular rate Rhythm: regular rhythm Skin: General skin exam: normal color Rashes: no rashes Other: on side of left great toe is small puncture more, no bleeding, no drainage, no erythema Neuro: General: patient oriented x3, moves all extremities and CN's II-XI intact bilaterally Extrem: Other: left anterior shoulder tenderness, pain with ROM, no significant swelling or deformity Psych: Mental Status: mental status grossly normal Affec
[2022-12-18] MEDS: TETANUS,DIPHTHERIA,AC PERTUSSIS ADULT (0.5 ML) BOOSTRIX IM (11:15)
[2022-12-18 11:20] VITALS: BP 138/82; PULSE 65; RESP 16; O2SAT 99
== END 2022-12-18 11:20 | disposition home or self-care (01) ==
PROVIDERS: Emergency Provider General Practice; PCP Physician Assistant
DX: S40.012A Contusion of left shoulder, initial encounter (principal); S91.332A Puncture wound without foreign body, left foot, initial encounter; Z23 Encounter for immunization; I10 Essential (primary) hypertension; M19.90 Unspecified osteoarthritis, unspecified site; K21.9 Gastro-esophageal reflux disease without esophagitis; E07.9 Disorder of thyroid, unspecified; Z87.891 Personal history of nicotine dependence; W20.8XXA Other cause of strike by thrown, projected or falling object, initial encounter; W22.8XXA Striking against or struck by other objects, initial encounter
CPT/HCPCS: 73030; 73630; 90471; 90715; 99284; A9270

== ENCOUNTER 2023-03-09 10:24 | Outpatient (CLI) | payer OTHER, SELFPAY ==
--- NOTE | ~2023-03-09 | US_ITS ---
EXAMINATION: US transvaginal DATE: 03/09/2023 13:02 INDICATION: Menorrhagia. Comparison:Ultrasound dated 12/20/2020 TECHNIQUE: Multiple transabdominal and endovaginal sonographic images of the pelvis performed. FINDINGS: The uterus measures 8.7 x 4.8 x 4.5 cm. There are nabothian cysts. The endometrial complex measures 12 mm. The right ovary measures 2.4 x 1.5 x 1.9 cm with normal vascularity. No discrete mass. Left ovary is not visualized. There is no free fluid in the pelvis. There are no abnormal masses seen on either side. IMPRESSION: 1. Mild endometrial thickening measuring 12 mm. Reviewed, dictated and finalized at location L.
--- NOTE | ~2023-03-09 | MR_ITS ---
EXAMINATION: MR lumbar spine wo con DATE: 03/09/2023 11:08 INDICATION: Lumbago. Sciatica. TECHNIQUE: Magnetic resonance imaging (MRI) of the lumbar spine was performed without intravenous con trast. Sequences included sagittal T2-weighted FSE, sagittal T2-weighted FS FSE, sagittal T1-weighted FSE, and axial T2-weighted FSE. COMPARISON: Lumbar spine MRI 12/22/2012 FINDINGS: Bone alignment is normal. Vertebral body heights and intervertebral disc heights are normal . The distal spinal cord signal intensity is normal. The conus medullaris is at L1-L2. The following disc levels are specifically discussed: L1-L2: The disc does not extend beyond the endplate margin. There is mild bilateral facet joint osteo arthritis. There is no neural foraminal stenosis. There is no central canal stenosis. L2-L3: The disc does not extend beyond the endplate margin. There is mild bilateral facet joint osteo arthritis. There is no neural foraminal stenosis. There is no central canal stenosis. L3-L4: The disc is mildly bulging. There is severe right and moderate left facet joint osteoarthritis . There is mild bilateral neural foraminal stenosis. There is no central canal stenosis. L4-L5: The disc does not extend beyond the endplate margin. There is severe bilateral facet joint ost eoarthritis. There is mild bilateral neural foraminal stenosis. There is no central canal stenosis. L5-S1: There is a right foraminal protrusion. There is severe right and mild left facet joint osteoar thritis. There is mild right neural foraminal stenosis. There is no central canal stenosis. IMPRESSION: 1. Mild lumbar spondylosis, stable from 12/22/2012. Reviewed, dictated and finalized at location A.
== END 2023-03-09 10:25 | disposition home or self-care (01) ==
PROVIDERS: PCP Physician Assistant; Visit Provider Physician Assistant
DX: M54.41 Lumbago with sciatica, right side (principal); N92.0 Excessive and frequent menstruation with regular cycle; M47.896 Other spondylosis, lumbar region
CPT/HCPCS: 72148; 76830

== ENCOUNTER 2023-07-15 11:00 | Outpatient (RCR) | payer OTHER, SELFPAY ==
[2023-06-04 11:05] VITALS: BP_SYST 130
--- NOTE | 2023-06-04 11:49 | OPREHPOC ---
Outpatient Therapy Plan of Care This is a Multidisciplinary Plan of Care that may contain components documented by all disciplines (PT, OT, and ST.) PT Problem 1 PT Problem #1 Knowledge Deficit PT Goal 1 Goal 1* indep with HEP PT Problem 2 PT Problem #2 Pain PT Goal 1 Goal 1* pt report pain at worst rating of 6/10 2* pt report with sleeping awaken 1x/night due to shoulder pain PT Problem 3 PT Problem #3 Impaired Range of Motion PT Goal 1 Goal in standing: active ROM of L shoulder: 1* flexion 145' 2* abduction 145' 3* IR- reach behind back, palm to above waist 4* ER-reach towards back of head, palm to back of head PT Problem 4 PT Problem #4 Impaired Strength PT Goal 1 Goal in standing: L shoulder active motion through full , available ROM x 6 reps: 1* flexion 2* abduction 3* IR 4* ER 5* pt report able to use L arm with kitchen tasks
--- NOTE | 2023-06-04 11:49 | PTOPEVAL1 ---
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 She reports onset of pain after an injury to her shoulder, window dropped open and hit her as she was walking by the window. She has been to ER and xray was negative. She reports sleep and activity level is affected by the pain. R hand dominant. With the evaluation: decreased strength and ROM of L shoulder in all motions; most pain increase with abduction and IR of shoulder; guarded with L shoulder, tends to hold with elbow flexed and forearm on her trunk; Skilled PT services are indicated for treatment of L shoulder: modalities to decrease pain; therapeutic exercises to increase strength and ROM with education for HEP and posture/position of shoulder. Plan of Care Interventions Electrical Stimulation,Hot Pack/Cold Pack,Manual Therapy,Neuro Re-education,Patient Education,Therapeutic Activities,Therapeutic Exercise,Ultr
[2023-06-25 10:45] VITALS: BP_SYST 160
--- NOTE | 2023-06-25 11:39 | OPREHPOC ---
Outpatient Therapy Plan of Care This is a Multidisciplinary Plan of Care that may contain components documented by all disciplines (PT, OT, and ST.) PT Problem 1 PT Problem #1 Knowledge Deficit PT Goal 1 Goal 1* indep with HEP Progress Met Comment 06-25-23 progress met goal continue to progress HEP PT Problem 2 PT Problem #2 Pain PT Goal 1 Goal 1* pt report pain at worst rating of 6/10 2* pt report with sleeping awaken 1x/night due to shoulder pain Progress Not Met Comment 06-25-23 progress goals not met continue towards goals PT Problem 3 PT Problem #3 Impaired Range of Motion PT Goal 1 Goal in standing: active ROM of L shoulder: 1* flexion 145' 2* abduction 145' 3* IR- reach behind back, palm to above waist 4* ER-reach towards back of head, palm to back of head Progress Met Comment 06-25-23 progress met goals NEW GOALS: active L shoulder motion in standin* flexion 155' 2* abduction 155' PT Problem 4 PT Problem #4 Impaired Strength PT Goal 1 Goal in standing: L shoulder active motion through full , available ROM x 6 reps: 1* flexion 2* abduction 3* IR 4* ER 5* pt report able to use L arm with kitchen tasks Progress Met Comment 06-25-23 progress met goals NEW GOALS: increase strength L shoulder to improve functional use of arm with home and self care tasks: in standing, through full
--- NOTE | 2023-06-25 11:40 | PTOPPROG ---
Assessment and note entered by Triny Person, PT Evaluation Information Assessment Status Progress Diagnosis L shoulder pain Onset December 18 2022 Subjective Information shoulder is better, can move it and use it more; to in July; am doing the exercises at home; wants to continue therapy to get shoulder stronger; PAIN: achy, heavy anterior L shoulder; pain awakens her 2x/night;can use L arm in the kitchen with tasks pain range in the past week: 3- 7/10; heat, stim, exercises help shoulder pain; take tylenol PRN for pain; Assessment PT Clinical Summary Maddi has received 6 PT sessions. Compared to the initial evaluation: pain decreased from 6-10/10 to 3-710; reported sleeping tolerance from awakening 3x to now 2x/ night due to pain; increased active ROM and strength of all shoulder motions; maximum lift of box from waist/floor height 14# and maximum L hand carry bucket of 14# x 20' walking; continues to have spasms and tenderness over proximal to mid biceps. Education on posture, HEP and pain management. The goals were achieved, except sleeping tolerance Continue PT to progress strengthening, increase ROM and functional use of L arm. Plan of Care Interventions Electrical Stimulation,Hot Pack/Cold Pack,Manual Therapy,Patient Education,Therapeutic Activities,Therapeutic Exercise,Ultrasound,Other Other Interventions taping PT Services Indicated Yes Treatment Frequency and 2x/wk for 3 weeks Duration These treatments will address the objective and functional deficits as defined above. The patient will be advanced safely and appropriately in order for the patient to progress towards his/her prior level of function. Additional exercises will be introduced and as well as a comprehensive home exercise program upon discharge, if needed, ?to ensure carryover of functional gains achieved in the clinic. This treatment plan has been reviewed and agreement upon by the patient.
[2023-07-15 10:50] VITALS: BP_SYST 155
--- NOTE | 2023-07-15 11:36 | PTOPDC ---
Assessment and note entered by Triny Person, PT Discharge Information Assessment Status Discharge Diagnosis L shoulder pain Onset December 18 2022 Subjective Information shoulder is doing good; been doing the exercises; use a heating pad at home; at home, is doing her cooking, cleaning, laundry- except heavy pots and carry big load of laundry down to her basement; goes back to dr in July; she has to come for therapy before she can get an MRI; Reported Pain Level Pain Score Self Report Additional Pain Score Comments pain range of past week 0-4/10; anterior GH joint increase pain: abduction decrease pain: rest, heating pad with sleeping in the recliner, shoulder is OK; when in the bed and roll over, pain in shoulder Assessment PT Clinical Summary Maddi has received 10 PT sessions. Compared to the last progress report: pain has improved from 3-7/10 to 0-4/10; sleeping through the night in her recliner without awakening due to shoulder pain; standing active shoulder flexion and abduction motions with slightly less ROM; resistance exercises with hand weight, remains at 2# with less ROM than previous; max weight lifting bilateral box improved from 14 to 18# and L hand bucket carry for 20' walking, improved from 15 to 20#; education completed for HEP. The goals were partially met. Discharge PT services. She is to continue with her HEP and has a follow up with medical care provider is in a few weeks. Plan of Care PT Services Indicated No
== END 2023-07-15 12:15 | disposition home or self-care (01) ==
LOC: ANHPT 11:00
PROVIDERS: PCP Physician Assistant; Visit Provider Physician Assistant
DX: M25.512 Pain in left shoulder (principal)
CPT/HCPCS: 36415; 86592; 86695; 86696; 86703; 86803; 87350; 97014; 97110; 97140; 97161; 97530; G0283; G0432

== ENCOUNTER 2023-07-15 13:15 | Outpatient (CLI) | payer OTHER, SELFPAY ==
[2023-07-15 15:06] LABS: HIV 1/2 Ab P24 Ag Result Negative (Negative)
[2023-07-15 15:26] LABS: Hepatitis C Virus Antibody Negative (Negative)
[2023-07-16 12:32] LABS: Rapid Plasma Reagin Non-Reactive (NonReactive)
[2023-07-20 15:33] LABS: Hepatitis Be Antigen Nonreactive
== END 2023-07-15 13:16 | disposition home or self-care (01) ==
LOC: ANHLAB 13:16
PROVIDERS: PCP Physician Assistant; Visit Provider Registered Nurse
DX: Z11.3 Encounter for screening for infections with a predominantly sexual mode of transmission (principal)
CPT/HCPCS: 36415; 86592; 86695; 86696; 86703; 86803; 87350; G0432

== ENCOUNTER 2023-09-07 10:14 | Outpatient (CLI) | payer OTHER, SELFPAY ==
--- NOTE | ~2023-09-07 | MM_ITS ---
EXAMINATION: MM screening elsy BI w danielle HISTORY: Screening TECHNIQUE: Craniocaudal and mediolateral oblique 3-D tomosynthesis images were obtained and synthetic 2-D images were generated. CAD analysis was submitted and interpreted. COMPARISON: Comparison to multiple prior studies sequentially, with oldest reviewed study dated 08/2017. BREAST PARENCHYMAL COMPOSITION: Not dense: There are scattered areas of fibroglandular density. FINDINGS: There is no evidence of suspicious mass, calcification, or architectural distortion to sugg est malignancy in either breast. There has been no suspicious interval change. IMPRESSION: 1. No mammographic evidence of malignancy. 2. Recommend routine screening mammography in one year. BI-RADS Category 1: Negative Reviewed, dictated and finalized at location A. NNER
== END 2023-09-07 10:15 | disposition home or self-care (01) ==
PROVIDERS: PCP Physician Assistant; Visit Provider Registered Nurse
DX: Z12.31 Encounter for screening mammogram for malignant neoplasm of breast (principal)
CPT/HCPCS: 77063; 77067

== ENCOUNTER 2023-09-15 08:50 | Outpatient (CLI) | payer OTHER, SELFPAY ==
[2023-09-15 09:30] LABS: Basophils Absolute Auto 0.1 K/mm3 (0.0-0.1); Basophils Percent Auto 1.6 % (0.2-1.2); Eosinophils Percent Auto 0.6 % (0-4.4); Hemoglobin 12.5 g/dL (12.0-15.0); Immature Granulocyte Absolute 0.01 K/mm3 (0.00-0.031); Immature Granulocyte Percent A 0.2 % (0-0.5); Lymphocytes Absolute Auto 2.25 K/mm3 (0.9-3.2); Lymphocytes Percent Auto 45.6 % (18.3-44.2); Mean Corpuscular HGB Conc 31.3 g/dl (32-36); Mean Corpuscular Volume 89.5 fl (80-100); Mean Platelet Volume 12.1 fl (7.4-10.4); Monocytes Absolute Auto 0.5 K/mm3 (0.1-0.6); Monocytes Percent Auto 9.3 % (2.6-8.5); Neutrophils Absolute Auto 2.1 K/mm3 (1.3-6.7); Neutrophils Percent Auto 42.7 % (45.5-73.1); Platelet Count Result 198 k/mm3 (150-375); Red Blood Count 4.47 M/mm3 (4.2-5.4); Red Cell Distribution Width 13.1 % (11.5-14.5); White Blood Count 4.9 K/mm3 (4.5-10.0)
[2023-09-15 09:46] LABS: Alanine Aminotransferase 17 U/L (6-35); Albumin Level 4.4 g/dL (3.5-5.1); Alkaline Phosphatase 55 U/L (38-126); Anion Gap 1 mmol/L (8-16); Aspartate Amino Transferase 25 U/L (14-36); Bilirubin,Total 0.8 mg/dL (0.2-1.3); Blood Urea Nitrogen 9 mg/dL (7-17); Calcium 9.5 mg/dL (8.4-10.2); Carbon Dioxide 30 mmol/L (22-30); Chloride 109 mmol/L (98-107); Cholesterol 121 mg/dL (0-200); Estimated Glomerular Filt Rate > 60; Glucose 94 mg/dL (65-110); HDL Direct 42 mg/dL; Potassium 4.3 mmol/L (3.4-5.0); Sodium 140 mmol/L (137-145); Triglycerides 104 mg/dL (<150)
[2023-09-15 09:56] LABS: LDL Cholesterol Direct 66 mg/dL
[2023-09-15 10:34] LABS: Thyroid Stimulating Hormone Reflex 0.968 uIU/mL (0.465-4.68)
== END 2023-09-15 08:51 | disposition home or self-care (01) ==
LOC: ANHLAB 08:51
PROVIDERS: PCP Physician Assistant; Visit Provider Internal Medicine Cardiovascular Disease
DX: I10 Essential (primary) hypertension (principal)
CPT/HCPCS: 36415; 80053; 80061; 84443; 85025

== ENCOUNTER 2024-01-14 13:56 | Outpatient (CLI) | payer OTHER, SELFPAY ==
--- NOTE | ~2024-01-14 | XR_ITS ---
XR knee LT 3V Ordering provider: Shantal Mann, PA History: . Pain in rt knee, chronic . Comparison: None. FINDINGS: BONES: No acute fracture or dislocation. JOINT SPACES: Normal. SOFT TISSUES: Normal. IMPRESSION: No acute osseous abnormality left knee. Reviewed, dictated and finalized at location A.
--- NOTE | ~2024-01-14 | XR_ITS ---
XR knee RT 3V Ordering provider: Shantal Mann, PA History: . Pain in rt knee, chronic . Comparison: None. FINDINGS: BONES: No acute fracture or dislocation. JOINT SPACES: Normal. SOFT TISSUES: Normal. IMPRESSION: No acute osseous abnormality right knee. Reviewed, dictated and finalized at location A.
== END 2024-01-14 13:57 | disposition home or self-care (01) ==
PROVIDERS: PCP Physician Assistant; Visit Provider Physician Assistant
DX: M25.561 Pain in right knee (principal); M25.562 Pain in left knee
CPT/HCPCS: 73562

== ENCOUNTER 2024-04-14 09:00 | Outpatient (RCR) | payer OTHER, SELFPAY ==
--- NOTE | 2024-01-27 09:56 | OPREHPOC ---
Outpatient Therapy Plan of Care This is a Multidisciplinary Plan of Care that may contain components documented by all disciplines (PT, OT, and ST.) PT Problem 1 PT Problem #1 Knowledge Deficit PT Goal 1 Goal Stone with HEP Target Visit 4 PT Problem 2 PT Problem #2 Impaired Range of Motion PT Goal 1 Goal Demonstrate 130 degrees of L knee flexion for improved functional joint motion Target Visit 8 PT Problem 3 PT Problem #3 Impaired Flexibility PT Goal 1 Goal Demonstrate minimal piriformis restriction bilaterally to reduce hip rotation restriction and improve knee alignment Target Visit 8 PT Problem 4 PT Problem #4 Impaired Strength PT Goal 1 Goal Improve meseret knee extension strength to 4+/5 to improve stability with gait and stair climbing Target Visit 8 PT Goal 2 Goal Patient will demonstrate ability to walk straight line without significant lateral deviation
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
--- NOTE | 2024-02-16 12:08 | PCPTNOTE ---
Pt canceled due to weather.
--- NOTE | 2024-03-17 10:14 | PCPTNOTE ---
Pt cancelled he appt stating she could not make it.
--- NOTE | 2024-03-24 13:53 | PCPTNOTE ---
pt called and canceled today's reeval. Reschedule date of 04-14-24.
--- NOTE | 2024-04-14 09:46 | PTOPDC ---
Assessment and note entered by Triny Person, PT Discharge Report Assessment Status Discharge ICD-10 Condition Codes (PT) M25.561,Pain in left knee M25.562 Onset January 2023 Subjective Information therapy helping some what; weather makes a differnence in her pain-- rainy day like today makes her hurt more; have been doing the exercises at home; have not had any falls; Reported Pain Level Pain Score Self Report Additional Pain Score Comments pain in both knees and back; also have hip pain; pain range in the past week: 3-10/10; increase pain: sitting for about 1 hour; standing /walking tolerance 25 minutes then have to sit down decrease pain: heating pad, stretching knee; Assessment PT Clinical Summary Maddi has received 6 PT sessions from January 26 to today. She called and canceled 3 scheduled appointments. Compared to the initial evaluation: pain rating now 3-10/10 in both knees; also reports pain in her hips and back; reported tolerances with walking 25 minutes and sitting 1 hour; self assessment LE functional scale rating from 75 to 35% limitation in activity level; increase strength of hips and knees with increase flexibility of knees to 0-130' active motion and increase piriformis ROM. Education for HEP and pain control completed. The goals were partially met. Discharge from PT. She is to continue with her HEP. Plan of Care PT Services Indicated No
== END 2024-04-14 11:07 | disposition home or self-care (01) ==
LOC: ANHPT 09:00
PROVIDERS: PCP Physician Assistant; Visit Provider Physician Assistant
DX: M25.561 Pain in right knee (principal)
CPT/HCPCS: 97014; 97110; 97161; 97530; G0283

== ENCOUNTER 2025-05-18 09:47 | Outpatient (CLI) | payer OTHER, SELFPAY ==
[2025-05-18 10:20] LABS: Hematocrit 37.2 % (37.0-47.0); Hemoglobin 11.6 g/dL (12.0-15.0); Immature Granulocyte Percent A 0.2 % (0-0.5); Lymphocytes Absolute Auto 2.20 K/mm3 (0.9-3.2); Mean Corpuscular HGB Conc 31.2 g/dl (32-36); Mean Corpuscular Hemoglobin 26.5 pg (26-34); Mean Corpuscular Volume 84.9 fl (80-100); Nucleated Red Blood Cells Absolute Auto 0.000 K/mm3 (0.0-0.012); Nucleated Red Blood Cells Perc 0.0 % (0.0-0.2); Platelet Count Result 212 k/mm3 (150-375); Red Blood Count 4.38 M/mm3 (4.2-5.4); White Blood Count 5.6 K/mm3 (4.5-10.0)
--- OUTSIDE RECORDS SUMMARY | 2025-05-18 10:21 | XMS_ITS | Clinical Summary ---
Author Organization [facility] Address [address] [place] [address] Care Team Providers Care Robotic Maintenance Technician Name Role Phone Tyra Perkins APRN-MESSAGE CLERK Primary Care Provider + Source Comments [facility],non-owned Affiliates and Associated Physician Practices is amultiple site organization consisting of ambulatory clinics and hospital sitesin [place], [place], [place] and [place]. This disclosure is being madepursuant to the Care Everywhere program and may not contain all information available regarding this patient. Last updated 18.[facility] Allergies Active Allergy Reactions Criticality Noted Date Comments Aspirin Anaphylaxis High 03/29/2019 Ibuprofen Anaphylaxis High 03/29/2019 Medications * Be aware that medications may not be up to date on this document. Alwaysverify current medications with the patient. fluticasone propionate (FLONASE) 50 MCG/ACT nasal spray 9 Active hydroCHLOROthiaz demetri (MICROZIDE) 12.5 MG capsule 9 Active hydrocortisone (HYTONE) 1 % cream 9 Active omeprazole (PRILOSEC) 20 MG capsule 9 Active Acetaminophen (TYLENOL) 325 MG CAPS Active SUMAtriptan (Imitrex) 100 MG tabletIndication s:Intractable chronic migraine without aura and without status migrainosus TAKE MEDICATION AT THE ONSET OF MIGRAINE, MAY REPEAT IN 2 HOURS 9 tablet 11 3 Active topiramate (Topamax) 25 MG tabletIndication s:Migraine Take 1 (one) tablet by mouth 2 times daily Reasons: Migraine Headache 180 tablet 3 5 Active Active Problems No known active problems Social History Tobacco Use Types Packs/Day Years Used Date Smoking Tobacco: Former Cigarettes S tarted: 2010 Smokeless Tobacco: Never Tobacco Cessation:Counseling Given: Not Answered Alcohol Use Standard Drinks/Week Comments Yes 0 (1 standard drink = 0.6 oz pur e alcohol) Comments Unknown Sex and Gender Information Value Date Recorded Sex Assigned at Not on file Legal Sex Female 9:59 AM CDT Gender Identity Not on file Sexual Orientation Not on file Last Filed Vital Signs Vital Sign Reading Time Taken Comments Blood Pressure 129/93 03/07/2020 10:39 AM CDT Pulse 71 03/07/2020 10:39 AM CDT Temperature 36.2 C (97.2 F) 03/07/2020 10:39 AM CDT Respiratory Rate - - Oxygen Saturation 99% 03/07/2020 10:39 AM CDT Inhaled Oxygen Concentration - - Weight 79.4 kg (175 lb) 03/07/2020 10:39 AM CDT Height 157.5 cm (5' 2) 03/07/2020 10:39 AM CDT Body Mass Index 32.01 03/07/2020 10:39 AM CDT Plan of Treatment Health Maintenance Due Date Last Done Comments COLOGUARD (AGES 45-75) - COL ON CA SCREENING 1978 COLON MONITORING 1978 COLONOSCOPY - COLON CA SCREENING 1978 CT COLONOGRAPHY - COLON CA SCREENING 1978 Colorectal Cancer Screening 1978 FIT - COLON CA SCREENING 1978 FLEX SIG - COLON CA SCREENING 1978 LIPID TESTING 1978 MAMMOGRAM 1978 HIV SCREENING 1993 HEPATITIS C SCREENING 02/10/1996 DTAP/TDAP/TD VACCINES (1 - Tdap) 1997 HEPATITIS B VACCINE (1 of 3 - 19+ 3-dose series) 1997 PAP SMEAR 1999 DEPRESSION SCREENING 07/19/2024 COVID-19 VACCINE (1 - 2023-2 5 season) 2025 INFLUENZA VACCINE (#1) 2025 ZOSTER VACCINE (1 of 2) 02/15/2028 HIB VACCINE Aged Out No longer eligi ble based on patient's age to complete this topic HPV VACCINE Aged Out No longer eligi ble based on patient's age to complete this topic MENINGOCOCCAL (Group B) VACC INE SHARED DECISION-MAKING Aged Out No longer eligibl e based on patient's age to complete this topic MENINGOCOCCAL GROUPS A/C/Y/W VACCINE Aged Out No longer eligible b ased on patient's age to complete this topic PNEUMOCOCCAL VACCINE Aged Out No long er eligible based on patient's age to complete this topic Insurance [facility] Care Teams Robotic Maintenance Technician Relationship Specialty Start Date End Date Tyra Perkins APRN-CONCEPCION [address] [place], [place] [phone] PCP - General Nurse Practitioner 04/16/19
--- OUTSIDE RECORDS SUMMARY | 2025-05-18 10:21 | XMS_ITS | Encounter Summary ---
Author Organization [facility] Address [address] [place] [address] Care Team Providers Care Editor City Name Role Phone Tyra Perkins Primary Care Provider + Encounter Details Date Type Department Care Team (Late st Contact Info) Description 06/09/2019 Telephone [facility] [address] [address] Angelica Castaneda MD [address] [place] [address] Social History Tobacco Use Types Packs/Day Years Used Date Smoking Tobacco: Never Smokeless Tobacco: Never Alcohol Use Standard Drinks/Week Comments Yes 0 (1 standard drink = 0.6 oz pur e alcohol) Comments Unknown Sex and Gender Information Value Date Recorded Sex Assigned at Not on file Legal Sex Female 9:59 AM CDT Gender Identity Not on file Sexual Orientation Not on file documented as of this encounter Miscellaneous Notes * Telephone Encounter - Angelica Castaneda MD - 06/09/2019 10:43 AM CST Called patient to inform her that her audiogram was received and showed normal hearing thresholds bilaterally. Informed her that she will not require hearing augmentation. She is free to return for follow up as needed. Angelica Castaneda PGY 5 06/09/2019 10:46 AM TROOM REPORTER documented in this encounter Plan of Treatment Not on file documented as of this encounter Visit Diagnoses Not on filedocumented in this encounter Care Teams Editor City Relationship Specialty Start Date End Date Tyra Perkins APRN-CNP [address] [place], [place] [phone] PCP - General Nurse Practitioner 04/16/19 documented as of this encounter
[2025-05-18 10:44] LABS: Alanine Aminotransferase 19 U/L (6-35); Albumin Level 4.3 g/dL (3.5-5.1); Alkaline Phosphatase 67 U/L (38-126); Anion Gap 6 mmol/L (4-12); Aspartate Amino Transferase 25 U/L (14-36); Bilirubin,Total 0.9 mg/dL (0.2-1.3); Blood Urea Nitrogen 12 mg/dL (7-17); Calcium 9.0 mg/dL (8.4-10.2); Carbon Dioxide 29 mmol/L (22-30); Chloride 105 mmol/L (98-107); Cholesterol 123 mg/dL (0-200); Estimated Glomerular Filt Rate > 60; Glucose 99 mg/dL (65-110); HDL Direct 38 mg/dL; Potassium 4.2 mmol/L (3.4-5.0); Sodium 140 mmol/L (137-145); Total Protein 7.4 g/dL (6.3-8.2); Triglycerides 72 mg/dL (<150)
[2025-05-18 10:54] LABS: Hemoglobin A1C 5.6 % (<5.7)
[2025-05-18 11:10] LABS: MALB Creatinine Ratio 5.0 mg/g (0-30)
[2025-05-18 11:54] LABS: Thyroid Stimulating Hormone Reflex 1.090 uIU/mL (0.465-4.68)
[2025-05-18 11:55] LABS: Vitamin B12 627.0 pg/mL (239-931)
[2025-05-18 12:48] LABS: Syphilis IgG/IgM Antibody Non-Reactive (Nonreactive)
[2025-05-18 12:50] LABS: Thyroid Stimulating Hormone Reflex 1.070 uIU/mL (0.465-4.68)
[2025-05-18 12:51] LABS: Hepatitis B Surface Antigen Negative (Negative)
[2025-05-18 13:01] LABS: HIV 1/2 Ab P24 Ag Result Negative (Negative)
== END 2025-05-18 09:48 | disposition home or self-care (01) ==
PROVIDERS: Nurse Practitioner Obstetrics & Gynecology; PCP Physician Assistant; Visit Provider Internal Medicine
DX: Z00.00 Encounter for general adult medical examination without abnormal findings (principal); Z11.3 Encounter for screening for infections with a predominantly sexual mode of transmission
CPT/HCPCS: 36415; 80053; 80061; 82043; 82306; 82607; 82746; 83036; 84443; 85025; 86593; 86703; 86803; 87340; G0432

== ENCOUNTER 2025-05-28 14:45 | Outpatient (CLI) | payer OTHER, SELFPAY ==
--- OUTSIDE RECORDS SUMMARY | 2025-05-28 14:51 | XMS_ITS | Clinical Summary ---
Author Organization [facility] [employer] Address [address] [place] [address] Care Team Providers Care Intake Counselor Name Role Phone Tyra Perkins APRN-MIXING AND MOLDING MACHINE OPERATOR Primary Care Provider + Source Comments [facility],non-owned Affiliates and Associated Physician Practices is amultiple site organization consisting of ambulatory clinics and hospital sitesin [place], [place], [place] and [place]. This disclosure is being madepursuant to the Care Everywhere program and may not contain all information available regarding this patient. Last updated 18.[facility] [employer] Allergies Active Allergy Reactions Criticality Noted Date [...] patient's age to complete this topic Insurance [employer] Care Teams Intake Counselor Relationship Specialty Start Date End Date Tyra Perkins APRN-CONCEPCION [address] [place], [place] [phone] PCP - General Nurse Practitioner 04/16/19
--- OUTSIDE RECORDS SUMMARY | 2025-05-28 14:51 | XMS_ITS | Encounter Summary ---
Author Organization [facility] Address [address] [place] [address] Care Team Providers Care Medical Records Director Name Role Phone Tyra Perkins Primary Care Provider + Encounter Details Date Type Department Care Team (Late st Contact Info) Description 06/09/2019 Telephone [facility] [address] [address] Angelica Castaneda MD [address] [place] [address] Social History Tobacco Use Types Packs/Day Years [...] Angelica Castaneda PGY 5 06/09/2019 10:46 AM RVISOR BAKING documented in this encounter Plan of Treatment Not on file documented as of this encounter Visit Diagnoses Not on filedocumented in this encounter Care Teams Medical Records Director Relationship Specialty Start Date End Date Tyra Perkins APRN-CNP [address] [place], [place] [phone] PCP - General Nurse Practitioner 04/16/19 documented as of this encounter
--- OUTSIDE RECORDS SUMMARY | 2025-05-28 14:52 | XMS_ITS | Data Portability ---
Author Organization [facility] Kim Mancia Address [address] [place] [address] Care Team Providers [facility] Drill Operator Name Role Phone OCTAVIO LEES Voicer SHANTAL ROMO Primary Care Provider Unavailabl e Assessment Encounter Date Assessment Date Assessment LastModified by Organization Details LastModified Time 03/16/2024 03/16/2024 she states she h as colonoscopy and saw cardiology, will request records Not available 03/16/2024 11:40:38 04/25/2025 04/25/2025 --- --- Investigations/Theresa gnostic Tests: [List in-office diagnostic tests performed during visit with results, if nothing performed, list None] - Urinalysis collected in office, pending results. MRI Lumbar Spine (date unknown): Multilevel degenerative disc disease and facet arthropathy, most pronounced at L3-4, L4-5, and L5-S1, with right-sided neural foraminal narrowing and nerve root impingement at these levels. X-ray Knee 12/2023: No acute osseous abnormality. X-ray Knee 2017: Minimal osteophytes noted. Assessment / Plan 1. CORONARY ARTERY DISEASE Status:Chronic, stable but symptomatic condition with ongoing shortness of breath on exertion, representing a moderate complexity of management due to the need for further cardiac evaluation. Diagnosed via abnormal stress test in 2021. Summary:History of abnormal stress test with persistent exertional dyspnea. Was taken off losartan and started on amlodipine by cardiology. Cardiology follow-up has lapsed. A recommended cardiac CTA was never performed. Plan: - Will provide a trial of an albuterol inhaler to assess for a reversible obstructive component to their dyspnea. - Refer back to Cardiology for re-evaluation, to consider repeat stress test and/or cardiac CTA given persistent symptoms. - Continue atorvastatin for secondary prevention. - Continue amlodipine. Discussed taking BP at home with arm relaxed at heart level. 2. HYPERTENSION Status:Chronic, uncontrolled condition. Complexity is moderate due to being out of medication and elevated BP in office. Patient has been out of their blood pressure medication. BP in office today is 150/88. They were switched from losartan to amlodipine by their neighborhood conservation officer, but the rationale is unclear. - Restart amlodipine 5 mg daily. - Patient advised to monitor BP at home and bring log to next appointment. - Will review chart further to understand medication change from losartan to amlodipine. 3. MIGRAINE, CHRONIC, WITHOUT AURA: Status:Chronic, active, and uncontrolled due to being out of medication. Symptoms are frequent (3x/week) and impact quality of life. This is a moderate complexity problem. Patient has been out of both their prophylactic (topiramate) and abortive (sumatriptan) migraine medications. Headaches remain frequent and debilitating. - Refill Topiramate 25 mg BID. - Refill Sumatriptan 100 mg PRN for migraines. - Amlodipine, refilled for HTN, may also provide some prophylactic benefit for migraines. 4. DEPRESSION Status: Chronic, poorly controlled. Patient reports significant depressive symptoms (8/10) in the context of major life stressors and poor social support. Low complexity problem with plan for medication initiation. Patient has a history of depression and was prescribed sertraline in January 2025 but did not initiate treatment. Reports current mood at 8/10 severity. - Re-send prescription for Sertraline. Advised that this can also help with migraines. - Encouraged counseling. 5. IRON DEFICIENCY ANEMIA Status: Chronic, untreated problem. Patient has been out of iron supplements. Condition is exacerbated by menorrhagia. This is a low complexity problem. Patient has a documented low ferritin (11 in 07/2023) and has been out of medication. Reports ongoing heavy menses. - Refill Ferrous Sulfate. - Instructed to take iron every other day at lunchtime to improve absorption. - Advised to take with a source of Vitamin C (other than orange juice due to allergy) and to separate from other medications by at least 2 hours, and famotidine by taking on alternate days. 6. CHRONIC LOW BACK PAIN WITH RIGHT RADICULOPATHY Status: Chronic, active condition with significant symptoms, particularly in cold weather. Imaging confirms multilevel degenerative changes with nerve impingement. This is a moderate complexity problem. Patient has significant multilevel lumbar degenerative disc disease, facet arthropathy, and neural foraminal narrowing causing chronic pain and right-sided sciatica. - Continue current management (not specified). Will address pain management options at future visit. 7. GASTROESOPHAGEAL REFLUX DISEASE WITH DYSPHAGIA Status: Chronic, long-standing problem (dysphagia ~10 years). The presence of dysphagia is a red flag symptom requiring further investigation, representing moderate complexity. Patient has long-standing dysphagia, a potential complication of chronic, untreated GERD. - Continue famotidine once daily. Advised to take on alternate days from iron supplement. - Refer to Gastroenterology for EGD to evaluate chronic dysphagia. 8. ALLERGIC RHINITIS Status: Chronic, stable. - Refill Flonase nasal spray as requested. 9. URINARY FREQUENCY Status: Acute on chronic problem of 5 months duration, etiology unclear. This is a low complexity problem requiring initial workup. - Urinalysis obtained in-office to rule out UTI. Will treat with antibiotics if indicated and send for culture and sensitivity. 10. SUSPECTED OBSTRUCTIVE SLEEP APNEA Status: Suspected, undiagnosed. Patient snores and had an incomplete sleep study in the past. This is a low complexity problem for now. - Refer for sleep medicine consultation and sleep study. Health Maintenance - Bloodwork: Will order CBC, CMP, lipid panel, TSH, HbA1c, Ferritin, Vitamin D. Patient advised to check with their insurance about covered lab facilities. - Follow up: RTC in 3 months for follow up. Will contact sooner if any lab results are critically abnormal. - Shoulder pain: Deferred full evaluation to next visit to ensure adequate time. HTN-quality measure/or test#1-BP check at home-plan/action/o rder/due date (ongoing) CAD-quality measure/or test#2-Cardiology referral-plan/acti on/order/due date (ordered today) Depression-quality measure/or test#3-PHQ-9 at next visit-plan/action/ order/due date (due in 3 months) - Medication list and allergies reviewed and updated TASK LIST 1. E-prescribe Amlodipine 5mg, 90-day supply. 2. E-prescribe Atorvastatin, 90-day supply. 3. E-prescribe Sumatriptan 100mg, #9, PRN headaches. 4. E-prescribe Topiramate 25mg BID, 90-day supply. 5. E-prescribe Sertraline. 6. E-prescribe Ferrous sulfate, take every other day. 7. E-prescribe Famotidine, take once daily on days not taking iron. 8. E-prescribe Flonase nasal spray. 9. E-prescribe Albuterol MDI. 10. Order Labs: CBC, CMP, Lipids, TSH, HbA1c, Ferritin, Vit D. 11. Place referral to Cardiology. 12. Place referral to Gastroenterology for EGD. 13. Place referral to Sleep Medicine for sleep study. 14. Check urinalysis results. 15. Follow up in 3 months. [email or web address] Not available 04/26/2025 16:03:07 Plan of Treatment Reminders Order Date Submit Date Provider Last Modified By Organization Details Last Modified Time Details Appointments ANY 30 2025 10:00A M Rebeka Krishna MD Not available Not available Not available Lab urinalysi s, dipstick 2024 025 [email or web address] In-Office Order, Internal Use Only DO Not Attach Compendium DO Not Attach Compendium, Do Not Delete/merge, [id number] 04/26/2025 16:00:07 HbA1c (hemoglob in A1c), blood 2024 025 [facility] (Lab), [address] [place], [address], 05/22/2025 11:14:29 TSH, serum, reflex free T4 2024 025 [facility] (Lab), [address] [facility], [place], [address], 05/22/2025 11:15:19 CMP, serum or plasma 2024 025 [facility] (Lab), [address] [facility], [place], [address], 05/18/2025 12:22:56 lipid panel, serum 2024 025 [facility] (Lab), [address], [place], [address], 05/18/2025 12:23:39 vitamin B12 + folate, serum or blood 2024 025 [facility] (Lab), [address], [place], [address], 05/22/2025 11:14:55 vitamin D, 25-hydrox y, total, serum 2024 025 [facility] (Lab), [address], [place], [address], 05/18/2025 15:54:38 CBC w/ auto diff 2024 025 karina [facility] (Lab), [address], [place], [address], 05/18/2025 12:23:30 microalbu min/creat inine, mass ratio, urine 2024 025 [facility] (Lab), [address], [place], [address], 05/22/2025 11:15:49 HIV 1 + 2, meaningfu l use set 2024 025 [facility], [address], [place], [address], 02/13/2025 12:12:28 RPR (rapid plasma reagin), serum 2024 025 [place] [facility], [address], [place], [address], 02/03/2025 05:10:18 Hepatitis C IgG Ab, qual, serum 2024 025 [facility], [address], [place], [address], 02/03/2025 05:10:17 chlamydia trachomat is + neisseria gonorrhoe ae + trichomon as vaginalis rRNA panel, LATHA+probe 2024 025 [facility] Lehman, [address], [place], [address], 02/13/2025 12:12:26 CMP, serum or plasma 2024 025 [facility] Lehman, [address], [place], [address], 02/02/2025 08:21:37 lipid panel, serum 2024 025 TIMRE[facility] Lehman, [address], [place], [address], 02/02/2025 08:21:36 albumin/c reatinine , mass ratio, urine 2024 025 TIM Lehman, [address], [place], [address], 02/13/2025 12:12:25 HbA1c (hemoglob in A1c), blood 2023 024 TIM Lehman, [address], [place], [address], 07/30/2023 17:09:59 CMP, serum or plasma 2023 024 TIM Lehman, [address], [place], [address], 07/29/2023 20:12:15 lipid panel, serum 2023 024 TIM Lehman, [address], [place], [address], 07/29/2023 20:12:14 iron + total iron-bind ing capacity (TIBC), serum 2023 024 TIM Lehman, [address], [place], [address], 07/30/2023 17:09:58 CBC w/ auto diff 2023 024 TIM [facility], [address], [place], [address], 07/29/2023 20:12:15 ferritin, serum or plasma 2023 024 TIM [facility], [address], [place], [address], 07/30/2023 17:09:59 Referral gastroent erologist referral 2024 025 karina Lees MD, [address], [place], [address], 05/28/2025 14:59:11 cardiolog ist referral 2024 025 karina Calvin , [address], [address], [place], [address], 05/28/2025 15:50:35 sleep medicine referral [address] [facility] Medicine, [address], [address], [place], [address], 05/24/2025 12:35:00 orthopedi c surgeon referral 2023 024 [facility], [address] [place], [address], 04/13/2024 07:52:28 physical therapist referral [address], [address], [place], [address], 01/10/2024 15:29:19 gastroent erologist referral 2023 024 TIM Lees MD, [address], [place], [address], 10/26/2023 10:55:45 Procedures None recorded. Surgeries None recorded. Imaging XR, knee, 3 view 2023 024 [facility] (Admitting), [address], [place], [address], 01/14/2024 21:30:50 Medication Orders fluticaso ne propionat e 50 mcg/actua tion nasal spray,amanda pension [address] [facility], [address] [place], [address], 04/26/2025 16:00:03 famotidin e 20 mg tablet [address] [facility], [address] [place], [address], 04/26/2025 16:00:03 topiramat e 25 mg tablet [address] [facility], [address] [place], [address], 04/26/2025 16:00:03 sumatript an 100 mg tablet [address] [facility], [address] [place], [address], 04/26/2025 16:00:03 amlodipin e 10 mg tablet [address] [facility], [address] [place], [address], 04/26/2025 16:00:02 sertralin e 50 mg tablet [address] [facility], [address] [place], [address], 04/26/2025 16:00:03 atorvasta tin 40 mg tablet [address] [facility], [address] [place], [address], 04/26/2025 16:00:03 ferrous sulfate 325 mg (65 mg iron) tablet [address] [facility], [address] [place], [address], 04/26/2025 16:00:03 sertralin e 50 mg tablet 2024 025 [facility], [address] [place], [address], 04/25/2025 16:02:53 Patient TargetsNo targets recorded. Patient Instructions Encounter Date Encounter Id Patient Instructions Last Modified By Organization Details Last Modified Time 01/10/2024 [id number] A healthy lifestyle: care instructions Not available 01/12/2024 10:54:14 03/16/2024 [id number] A healthy lifestyle: care instructions Not available 03/16/2024 11:39:56 Reason for Referral Voicer Referral for Screening for malignant neoplasm of colon Referring Physician: Shantal Romo Medicine Technologist, Encounter Date: 07/29/2023 Orthopedic Surgeon Referral for Lumbago with sciatica Referring Physician: Shantal Romo Medicine Technologist, Encounter Date: 01/10/2024 Physical Therapist Referral for Pain of bilateral knee joints Referring Physician: Shantal Romo Medicine Technologist, Encounter Date: 01/10/2024 Director Of Strategic Marketing Referral for Dy spnea on exertion Referring Physician: Rebeka Krishna, Internal Medicine, Encounter Date: 04/25/2025 Voicer Referral for Dysphagia Referring Physician: Rebeka Krishna Internal Medicine, Encounter Date: 04/25/2025 Sleep Medicine Referral for Snoring Referring Physician: Rebeka Krishna Internal Medicine, Encounter Date: 04/25/2025 Results Created Date Observation Date Name Description Value Unit Range Abnormal Flag Note LastModifiedBy Organization Detail LastModifiedTime 07/29/19 24 07/29/2023 LIPID PANEL cholesterol, total 127 mg/dL 100-19 9 Not Available [facility] Department [address] [place] [address], [address], 07/29/2023 20:12:14 07/29/19 24 07/29/2023 LIPID PANEL triglyceride s 72 mg/dL 0-149 Not Available [facility] Department [address] [place] [address], [address], 07/29/2023 20:12:14 07/29/19 24 07/29/2023 LIPID PANEL HDL cholesterol 48 mg/dL 40-999 Not Available [facility] Department [address] [place] [address], [address], 07/29/2023 20:12:14 07/29/19 24 07/29/2023 LIPID PANEL VLDL cholesterol len 14 mg/dL 5-40 Not Available [facility] Department [address] [place], [address], 07/29/2023 20:12:14 07/29/19 24 07/29/2023 LIPID PANEL LDL chol calc (nih) 73 mg/dL 0-99 Not Available [facility] Department [address] [place], [address], 07/29/2023 20:12:14 07/29/19 24 07/29/2023 COMP. METAB OLIC PANEL (14) glucose 83 mg/dL 70-99 Not Available [facility] Department [address] [place], [address], 07/29/2023 20:12:15 07/29/19 24 07/29/2023 COMP. METAB OLIC PANEL (14) BUN 11 mg/dL 6-24 Not Available [facility] Department [address] [place], [address], 07/29/2023 20:12:15 07/29/19 24 07/29/2023 COMP. METAB OLIC PANEL (14) creatinine 0.66 mg/dL 0.76-1 .27 below low normal Not Available [facility] Department [address] [place] [address], [address], 07/29/2023 20:12:15 07/29/19 24 07/29/2023 COMP. METAB OLIC PANEL (14) eGFR 110 >=60 Units for eGFR value s are mL/mi n/1.7 3 The eGFR Calcu latio n has not been valid ated for patie nts under the age of 18. If test resul ts are displ ayed for a patie nt under the age of 18, disre la that value . Not Available [facility] Department [address] [place] [address], [address], 07/29/2023 20:12:15 07/29/19 24 07/29/2023 COMP. METAB OLIC PANEL (14) BUN/creatini ne ratio 17 9-23 Not Available [facility] Department [address] [place] [address], [address], 07/29/2023 20:12:15 07/29/19 24 07/29/2023 COMP. METAB OLIC PANEL (14) sodium 144 mmol/ L 134-14 4 Not Available [facility] Department [address] [place] [address], [address], 07/29/2023 20:12:15 07/29/19 24 07/29/2023 COMP. METAB OLIC PANEL (14) potassium 4.4 mmol/ L 3.5-5. 2 Not Available [facility] Department [address] [place] [address], [address], 07/29/2023 20:12:15 07/29/19 24 07/29/2023 COMP. METAB OLIC PANEL (14) chloride 105 mmol/ L 96-106 Not Available [facility] Department [address] [place] [address], [address], 07/29/2023 20:12:15 07/29/19 24 07/29/2023 COMP. METAB OLIC PANEL (14) carbon dioxide, total 26 mmol/ L 20-29 Not Available [facility] Department [address] [place], [address], 07/29/2023 20:12:15 07/29/19 24 07/29/2023 COMP. METAB OLIC PANEL (14) calcium 9.2 mg/dL 8.7-10 .2 Not Available [facility] Department [address] [place], [address], 07/29/2023 20:12:15 07/29/19 24 07/29/2023 COMP. METAB OLIC PANEL (14) protein, total 7.0 g/dL 6.0-8. 5 Not Available [facility] Department [address] [place], [address], 07/29/2023 20:12:15 07/29/19 24 07/29/2023 COMP. METAB OLIC PANEL (14) albumin 4.4 g/dL 3.9-4. 9 Not Available [facility] Department [address] [place], [address], 07/29/2023 20:12:15 07/29/19 24 07/29/2023 COMP. METAB OLIC PANEL (14) globulin, total 2.6 g/dL 1.5-4. 5 Not Available [facility] Department [address] [place], [address], 07/29/2023 20:12:15 07/29/19 24 07/29/2023 COMP. METAB OLIC PANEL (14) A/G ratio 2.0 1.2-2. 2 Not Available [facility] Department [address] [place] [address], [address], 07/29/2023 20:12:15 07/29/19 24 07/29/2023 COMP. METAB OLIC PANEL (14) bilirubin, total 0.5 mg/dL 0.0-1. 2 Not Available [facility] Department [address] [place], [address], 07/29/2023 20:12:15 07/29/19 24 07/29/2023 COMP. METAB OLIC PANEL (14) alkaline phosphatase 63 IU/L 44-121 Not Available [facility] Department [address] [place], [address], 07/29/2023 20:12:15 07/29/19 24 07/29/2023 COMP. METAB OLIC PANEL (14) AST (SGOT) 18 IU/L 0-40 Not Available [facility] Department [address] [place] [address], [address], 07/29/2023 20:12:15 07/29/19 24 07/29/2023 COMP. METAB OLIC PANEL (14) ALT (SGPT) 15 IU/L 0-32 Not Available [facility] Department [address] [place] [address], [address], 07/29/2023 20:12:15 07/29/19 24 07/29/2023 CBC WITH DIFFE RENTI AL/PL ATELE T WBC 5.2 x10e3 /uL 3.4-10 .8 Not Available [facility] Department [address] [place] [address], [address], 07/29/2023 20:12:15 07/29/19 24 07/29/2023 CBC WITH DIFFE RENTI AL/PL ATELE T RBC 4.28 x10e6 /uL 3.77-5 .28 Not Available [facility] Department [address] [place] [address], [address], 07/29/2023 20:12:15 07/29/19 24 07/29/2023 CBC WITH DIFFE RENTI AL/PL ATELE T hemoglobin 11.8 g/dL 11.1-1 5.9 Not Available [facility] Department [address] [place], [address], 07/29/2023 20:12:15 07/29/19 24 07/29/2023 CBC WITH DIFFE RENTI AL/PL ATELE T hematocrit 37.5 % 34.0-4 6.6 Not Available [facility] Department [address] [place], [address], 07/29/2023 20:12:15 07/29/19 24 07/29/2023 CBC WITH DIFFE RENTI AL/PL ATELE T MCV 88 fL 79-97 Not Available [facility] Department [address] [place], [address], 07/29/2023 20:12:15 07/29/19 24 07/29/2023 CBC WITH DIFFE RENTI AL/PL ATELE T MCH 27.6 pg 26.6-3 3.0 Not Available [facility] Department [address] [place], [address], 07/29/2023 20:12:15 07/29/19 24 07/29/2023 CBC WITH DIFFE RENTI AL/PL ATELE T MCHC 31.5 g/dL 31.5-3 5.7 Not Available [facility] Department [address] [place], [address], 07/29/2023 20:12:15 07/29/19 24 07/29/2023 CBC WITH DIFFE RENTI AL/PL ATELE T RDW 12.2 % 11.5-1 4.5 Not Available [facility] Department [address] [place], [address], 07/29/2023 20:12:15 07/29/19 24 07/29/2023 CBC WITH DIFFE RENTI AL/PL ATELE T platelets 241 x10e3 /uL 150-45 0 Not Available [facility] Department [address] [place], [address], 07/29/2023 20:12:15 07/29/19 24 07/29/2023 CBC WITH DIFFE RENTI AL/PL ATELE T neutrophils 49 % notest b. Not Available [facility] Department [address] [place], [address], 07/29/2023 20:12:15 07/29/19 24 07/29/2023 CBC WITH DIFFE RENTI AL/PL ATELE T lymphs 41 % notest b. Not Available [facility] Department [address] [place], [address], 07/29/2023 20:12:15 07/29/19 24 07/29/2023 CBC WITH DIFFE RENTI AL/PL ATELE T monocytes 8 % notest b. Not Available [facility] Department [address] [place], [address], 07/29/2023 20:12:15 07/29/19 24 07/29/2023 CBC WITH DIFFE RENTI AL/PL ATELE T eos 1 % notest b. Not Available [facility] Department [address] [place], [address], 07/29/2023 20:12:15 07/29/19 24 07/29/2023 CBC WITH DIFFE RENTI AL/PL ATELE T basos 2 % notest b. Not Available [facility] Department [address] [place], [address], 07/29/2023 20:12:15 07/29/19 24 07/29/2023 CBC WITH DIFFE RENTI AL/PL ATELE T neutrophils (absolute) 2.5 x10e3 /uL 1.4-7. 0 Not Available [facility] Department [address] [place], [address], 07/29/2023 20:12:15 07/29/19 24 07/29/2023 CBC WITH DIFFE RENTI AL/PL ATELE T lymphs (absolute) 2.1 x10e3 /uL 0.7-3. 1 Not Available [facility] Department [address] [place], [address], 07/29/2023 20:12:15 07/29/19 24 07/29/2023 CBC WITH DIFFE RENTI AL/PL ATELE T monocytes(ab solute) 0.4 x10e3 /uL 0.1-0. 9 Not Available [facility] Department [address] [place], [address], 07/29/2023 20:12:15 07/29/19 24 07/29/2023 CBC WITH DIFFE RENTI AL/PL ATELE T eos (absolute) 0.0 x10e3 /uL 0.0-0. 4 Not Available [facility] Department [address] [place] [address], [address], 07/29/2023 20:12:15 07/29/19 24 07/29/2023 CBC WITH DIFFE RENTI AL/PL ATELE T baso (absolute) 0.1 x10e3 /uL 0.0-0. 2 Not Available [facility] Department [address] [place], [address], 07/29/2023 20:12:15 07/29/19 24 07/29/2023 CBC WITH DIFFE RENTI AL/PL ATELE T immature granulocytes 0.2 % notest b. Not Available [facility] Department [address] [place] [address], [address], 07/29/2023 20:12:15 07/29/19 24 07/29/2023 CBC WITH DIFFE RENTI AL/PL ATELE T immature grans (abs) 0.0 x10e3 /uL 0.0-0. 1 Not Available [facility] Department [address] [place], [address], 07/29/2023 20:12:15 07/29/19 24 07/29/2023 CBC WITH DIFFE RENTI AL/PL ATELE T NRBC 0 % 0-0 Not Available [facility] Department [address] [place], [place] [address], [address], 07/29/2023 20:12:15 07/29/19 24 07/30/2023 IRON AND TIBC iron bind.cap.(TI BC) 388 ug/dL 250-45 0 Not Available [facility] ([facility]) [address] [place], [address], 07/30/2023 17:09:58 07/29/19 24 07/30/2023 IRON AND TIBC UIBC 328 ug/dL 131-42 5 Not Available [facility] ([facility]) [address] [place], [address], 07/30/2023 17:09:58 07/29/19 24 07/30/2023 IRON AND TIBC iron 60 ug/dL 27-159 Not Available [facility] ([facility]) [address] [place], [address], 07/30/2023 17:09:58 07/29/19 24 07/30/2023 IRON AND TIBC iron saturation 15 % 15-55 Not Available [facility] ([facility]) [address] [place], [address], 07/30/2023 17:09:58 07/29/19 24 07/30/2023 STEPHANI TIN ferritin 11 NG/mL 15-150 below low normal Not Available [facility] ([facility]) [address] [place], [address], 07/30/2023 17:09:59 07/29/1907/30/2023 HEMOG LOBIN A1C hemoglobin A1C - % Test not perfo rmed. No laven sarina top tube submi tted. Predi abete s: 5.7 - 6.4 Diabe issa: >6.4 Glyce kasandra contr ol for adult s with diabe issa: <7.0 Not Available [facility] ([facility]) [address] [place], [address], 07/30/2023 17:09:59 07/29/19 24 07/30/2023 SPECI MEN STATU S REPOR T specimen status report TNP Test not perfo rmed. No laven sarina top tube submi tted. TEST: [id number] Hemog lobin A1c Not Available [facility] ([facility]) [address] [place], [address], 07/30/2023 17:09:57 02/02/20 25 02/02/2025 LIPID PANEL cholesterol, total 129 mg/dL 100-19 9 Not Available [facility] ([facility]) [address] [place], [address], 02/02/2025 08:21:36 02/02/20 25 02/02/2025 LIPID PANEL triglyceride s 103 mg/dL 0-149 Not Available [facility] ([facility]) [address] [place], [address], 02/02/2025 08:21:36 02/02/20 25 02/02/2025 LIPID PANEL HDL cholesterol 37 mg/dL >39 below low normal Not Available [facility] ([facility]) [address] [place], [address], 02/02/2025 08:21:36 02/02/20 25 02/02/2025 LIPID PANEL VLDL cholesterol len 19 mg/dL 5-40 Not Available [facility] ([facility]) [address] [place], [address], 02/02/2025 08:21:36 02/02/20 25 02/02/2025 LIPID PANEL LDL chol calc ([facility]) 73 mg/dL 0-99 Not Available [facility] ([facility]) [address] [place], [address], 02/02/2025 08:21:36 02/02/20 25 02/02/2025 COMP. METAB OLIC PANEL (14) glucose 82 mg/dL 70-99 Not Available [facility] ([facility]) [address] [facility] [place], [address], 02/02/2025 08:21:37 02/02/20 25 02/02/2025 COMP. METAB OLIC PANEL (14) BUN 11 mg/dL 6-24 Not Available [facility] ([facility]) [address] [facility] [place], [address], 02/02/2025 08:21:37 02/02/20 25 02/02/2025 COMP. METAB OLIC PANEL (14) creatinine 0.73 mg/dL 0.57-1 .00 Not Available [facility] ([facility]) [address] [place], [address], 02/02/2025 08:21:37 02/02/20 25 02/02/2025 COMP. METAB OLIC PANEL (14) eGFR 103 mL/mi n/1.7 3 >59 Not Available [facility] ([facility]) [address] [place], [address], 02/02/2025 08:21:37 02/02/20 25 02/02/2025 COMP. METAB OLIC PANEL (14) BUN/creatini ne ratio 15 9-23 Not Available [facility] ([facility]) [address] [place], [address], 02/02/2025 08:21:37 02/02/20 25 02/02/2025 COMP. METAB OLIC PANEL (14) sodium 140 mmol/ L 134-14 4 Not Available [facility] ([facility]) [address] [place], [address], 02/02/2025 08:21:37 02/02/20 25 02/02/2025 COMP. METAB OLIC PANEL (14) potassium 4.0 mmol/ L 3.5-5. 2 Not Available [facility] ([facility]) [address] [place], [address], 02/02/2025 08:21:37 02/02/20 25 02/02/2025 COMP. METAB OLIC PANEL (14) chloride 104 mmol/ L 96-106 Not Available [facility] ([facility]) [address] [facility], [place], [address], 02/02/2025 08:21:37 02/02/20 25 02/02/2025 COMP. METAB OLIC PANEL (14) carbon dioxide, total 20 mmol/ L 20-29 Not Available [facility] ([facility]) [address] [facility], [place], [address], 02/02/2025 08:21:37 02/02/20 25 02/02/2025 COMP. METAB OLIC PANEL (14) calcium 9.3 mg/dL 8.7-10 .2 Not Available [facility] ([facility]) [address] [facility], [place], [address], 02/02/2025 08:21:37 02/02/20 25 02/02/2025 COMP. METAB OLIC PANEL (14) protein, total 6.9 g/dL 6.0-8. 5 Not Available [facility] ([facility]) [address] [facility], [place], [address], 02/02/2025 08:21:37 02/02/20 25 02/02/2025 COMP. METAB OLIC PANEL (14) albumin 4.4 g/dL 3.9-4. 9 Not Available [facility] ([facility]) [address] [place], [address], 02/02/2025 08:21:37 02/02/20 25 02/02/2025 COMP. METAB OLIC PANEL (14) globulin, total 2.5 g/dL 1.5-4. 5 Not Available [facility] ([facility]) [address] [place], [address], 02/02/2025 08:21:37 02/02/20 25 02/02/2025 COMP. METAB OLIC PANEL (14) bilirubin, total 0.7 mg/dL 0.0-1. 2 Not Available [facility] ([facility]) [address] [place], [address], 02/02/2025 08:21:37 02/02/20 25 02/02/2025 COMP. METAB OLIC PANEL (14) alkaline phosphatase 57 IU/L 44-121 Not Available [facility] ([facility]) [address] [place], [address], 02/02/2025 08:21:37 02/02/20 25 02/02/2025 COMP. METAB OLIC PANEL (14) AST (SGOT) 28 IU/L 0-40 Not Available [facility] ([facility]) [address] [place], [address], 02/02/2025 08:21:37 02/02/20 25 02/02/2025 COMP. METAB OLIC PANEL (14) ALT (SGPT) 19 IU/L 0-32 Not Available [facility] ([facility]) [address] [place], [address], 02/02/2025 08:21:37 02/02/20 25 02/03/2025 INTER PRETA TION: interpretati on: Commen t Not infec janes with HCV unles s early or acute infec tion is suspe cted (whic h may be delay ed in an immun ocomp romis ed indiv idual ), or other evide nce exist s to indic ate HCV infec tion. Not Available [facility] ([facility]) [address] [place], [address], 02/03/2025 05:10:16 02/02/20 25 02/03/2025 HCV ANTIB TRINIDAD RFX TO QUANT PCR HCV Ab NON REACTI VE nonrea ctive Not Available [facility] ([facility]) [address] [place], [address], 02/03/2025 05:10:16 02/02/2002/02/2025 SAL EN AUTHO RIZAT ION written authorizatio n Haleigh Haley en Autho rizat ion Recei julienne. Autho rizat ion recei julienne from PER ORIGI NAL ORDER [id number] 36-02 89-0 02-02 Logge d by Adrienne Duval as Not Available [facility] ([facility]) [address] [facility], [place], [address], 02/03/2025 05:10:17 02/02/2002/02/2025 RPR, RFX QN RPR/C ONFIR M TP interpretati on: HALEIGH Bower Syphi lis: RPR with Refle x to RPR Titer and Trepo nemal Antib odies , Tradi avila l Scree magui and Diagn osis Algor ith ----- ----- ----- ----- ----- ----- ----- ----- ----- ----- ----- ----- Trepo nemal RPR RPR, Qn Ab Final Inter preta tion ----- --- ----- ---- ----- ----- ----- ----- ----- ----- ---- Non N/A N/A No labor atory evide nce React pancho of syphi lis. Retes t in 2-4 weeks if recen t expos ure is suspe cted. ----- --- ----- ---- ----- ----- ----- ----- ----- ----- ---- React pancho >/=1: 1 Non Nontr epone mal antib odies React pancho detec janes. Syphi lis unlik bonnie; biolo gical false posit pancho possi ble. Retes t in 2-4 weeks if recen t expos ure is suspe cted. ----- --- ----- ---- ----- ----- ----- ----- ----- ----- ---- React pancho >/=1: 1 React pancho Trepo nemal and nontr epone mal antib odies detec janes. Consi stent with past or curre nt (pote ntial early ) syphi lis. Not Available [facility] ([facility]) [address] [facility], [place], [address], 02/03/2025 05:10:18 02/02/2002/03/2025 RPR, RFX QN RPR/C ONFIR M TP RPR NON REACTI VE nonrea ctive Not Available [facility] ([facility]) [address] [facility], [place], [address], 02/03/2025 05:10:18 02/02/2002/02/2025 SPECI MEN STATU S REPOR T specimen status report TNP Pleas e refer to the follo wing speci men for addit ional lab resul ts. TEST: [id number] RPR, Rfx Q[place] RPR/[place] [address] 0 HCV Antib trin[place] RFX to Quant PCR SEE [id number] 36-02 90-1 Not Available [facility] ([facility]) [address] [place], [address], 02/13/2025 12:12:24 02/02/2002/02/[address] PROBL EM request problem TNP Test not perfo rmed. Unabl e to perfo rm testi ng becau se a requi red dedic ated, unope zafar tube was not recei julienne. TEST: [id number] 5 HIV Ab/p2 4 Ag with Refle x Not Available [facility] ([facility]) [address] [place], [address], 02/13/2025 12:12:24 02/02/20 25 02/13/2025 ALBUM IN/CR EATIN INE RATIO ,URIN E creatinine, urine 398.6 mg/dL notest ab. Not Available [facility] ([facility]) [address] [facility], [place], [address], 02/13/2025 12:12:25 02/02/20 25 02/13/2025 ALBUM IN/CR EATIN INE RATIO ,URIN E albumin, urine 26.4 ug/mL notest ab. Not Available [facility] ([facility]) [address] [facility], [place], [address], 02/13/2025 12:12:25 02/02/20 25 02/13/2025 ALBUM IN/CR EATIN INE RATIO ,URIN E alb/creat ratio 7 mg/g_ creat 0-29 Chanelle l: 0 - 29 Moder ately incre ased: 30 - 300 Sever bonnie incre ased: >300 Not Available [facility] ([facility]) [address] [facility], [place], [address], 02/13/2025 12:12:25 02/02/20 25 02/02/2025 HCV ANTIB TRINIDAD RFX TO QUANT PCR HCV Ab - Pleas e refer to the follo wing speci men for addit ional lab resul ts. SEE 198-3 36-02 90-1 Not Available [facility] ([facility]) [address] [facility], [place], [address], 02/13/2025 12:12:26 02/02/20 25 02/03/2025 CT, NG, TRICH VAG BY LATHA chlamydia by LATHA NEGATI VE negati ve Not Available [facility] ([facility]) [address] [facility], [place], [address], 02/13/2025 12:12:26 02/02/20 25 02/03/2025 CT, NG, TRICH VAG BY LATHA gonococcus by LATHA NEGATI VE negati ve Not Available [facility] ([facility]) [address] [facility], [place], [address], 02/13/2025 12:12:26 02/02/20 25 02/03/2025 CT, NG, TRICH VAG BY LATHA trich vag by LATHA NEGATI VE negati ve Not Available [facility] ([facility]) [address] [facility], [place], [address], 02/13/2025 12:12:26 02/02/20 25 02/02/2025 RPR, RFX QN RPR/C ONFIR M TP RPR - Pleas e refer to the follo wing speci men for addit ional lab resul ts. SEE 198-3 36- 90-1 Not Available [facility] ([facility]) [address] [facility], [place], [address], 02/13/2025 12:12:27 02/02/20 25 02/02/2025 HIV AB/P2 4 AG WITH REFLE X HIV Ab/P24 Ag screen - Test not perfo rmed. Unabl e to perfo rm testi ng becau se a requi red dedic ated, unope zafar tube was not recei julienne. Not Available [facility] ([facility]) [address] [facility], [place], [address], 02/13/2025 12:12:28 04/25/2004/25/2025 urina lysis , dipst ick Leukocytes Negati ve Not Available In-Office Order Internal Use Only DO Not Attach Compendium DO Not Attach Compendium, Do Not Delete/merge, [id number] 04/25/2025 17:28:13 04/25/2004/25/2025 urina lysis , dipst ick Nitrite negati ve Not Available In-Office Order Internal Use Only DO Not Attach Compendium DO Not Attach Compendium, Do Not Delete/merge, [id number] 04/25/2025 17:28:13 04/25/20 25 04/25/2025 urina lysis , dipst ick Urobilinogen 1 Not Available In-Of fice Order Internal Use Only DO Not Attach Compendium DO Not Attach Compendium, Do Not Delete/merge, [id number] 04/25/2025 17:28:13 04/25/2004/25/2025 urina lysis , dipst ick Protein Negati ve Not Available In-Office Order Internal Use Only DO Not Attach Compendium DO Not Attach Compendium, Do Not Delete/merge, 04/25/2025 17:28:13 04/25/2004/25/2025 urina lysis , dipst ick pH 6.5 Not Available In-Office Order Internal Use Only DO Not Attach Compendium DO Not Attach Compendium, Do Not Delete/merge, 04/25/2025 17:28:13 04/25/2004/25/2025 urina lysis , dipst ick Blood Negati ve Not Available In-Office Order Internal Use Only DO Not Attach Compendium DO Not Attach Compendium, Do Not Delete/merge, [id number] 04/25/2025 17:28:13 04/25/2004/25/2025 urina lysis , dipst ick Specific [place] 1.025 Not Available In-Off ice Order Internal Use Only DO Not Attach Compendium DO Not Attach Compendium, Do Not Delete/merge, 04/25/2025 17:28:13 04/25/2004/25/2025 urina lysis , dipst ick Ketone Negati ve Not Available In-Office Order Internal Use Only DO Not Attach Compendium DO Not Attach Compendium, Do Not Delete/merge, [id number] 04/25/2025 17:28:13 04/25/2004/25/2025 urina lysis , dipst ick Bilirubin Negati ve Not Available In-Office Order Internal Use Only DO Not Attach Compendium DO Not Attach Compendium, Do Not Delete/merge, 04/25/2025 17:28:13 04/25/2004/25/2025 urina lysis , dipst ick Glucose Negati ve Not Available In-Office Order Internal Use Only DO Not Attach Compendium DO Not Attach Compendium, Do Not Delete/merge, [id number] 04/25/2025 17:28:13 04/25/2004/25/2025 urina lysis , dipst ick Appearance Clear Not Available In-Offi ce Order Internal Use Only DO Not Attach Compendium DO Not Attach Compendium, Do Not Delete/merge, [id number] 04/25/2025 17:28:13 04/25/2004/25/2025 urina lysis , dipst ick Color Yellow Not Available In-Office Order Internal Use Only DO Not Attach Compendium DO Not Attach Compendium, Do Not Delete/merge, [id number] 04/25/2025 17:28:13 09/07/19 24 09/07/2023 MAMMO , scree magui, bilat eral No observ ation record ed. [address] [address], [place], [address], 09/07/2023 14:55:24 09/08/19 24 09/07/2023 MAMMO , scree magui, bilat eral No observ ation record ed. [address] [facility], [place], [address], 09/14/2023 09:29:45 01/14/20 24 01/14/2024 XR, knee, 3 view No observ ation record ed. [address] [facility], [place], [address], 01/17/2024 14:54:35 01/14/20 24 01/14/2024 XR, knee, 3 view No observ ation record ed. [address] [facility], [place], [address], 01/17/2024 14:54:36 01/15/20 24 01/14/2024 XR, knee, 3 view No observ ation record ed. [address] [address], [place], [address], 01/17/2024 14:54:36 Result Notes None recorded. Problems Name Problem SNOMED Code Status Onset Date Resolution Date Notes Provider Name and Address Organization Details Recorded Time Allergic rhinitis 56511227 Active ROBINSON Garcia Attn: Accounting ,[address] [place], [address] , [place] [facility] 11:27:38 Backache 999541513 Completed 03/09/2018 ROBINSON Lucas Attn: Accounting ,[address] [place], [address] , [place] [facility] 22:29:00 Generalize d headache 952408298 Completed 03/09/2018 ROIBNSON Marcelino Attn: Accounting ,[address] [place], [address] , [place] [facility] 22:28:57 Rhinitis 90570022 Completed 03/09/2018 ROBINSON Marcelino Attn: Accounting ,[address] [place], [address] , [place] [facility] 22:29:20 Increased frequency of urination 658840689 Completed 03/09/2018 ROBINSON Marcelino Attn: Accounting ,[address] [place], [address] , [place] [facility] 22:29:02 Low back pain 104274077 Completed 03/09/2018 ROBINSON Marcelino Attn: Accounting ,[address] [place], [address] , [place] [facility] 22:29:15 Lateral epicondyli tis 368769468 Completed 03/09/2018 ROBINSON Marcelino Attn: Accounting ,[address] [place], [address] , [place] [facility] 22:29:04 Infection by Trichomona s 99398528 Completed 05/19/2018 ROBINSON Marcelino Attn: Accounting ,[address] [place], [address] , [place] [facility] 17:50:42 Pain of shoulder region 28361497 Completed 03/09/2018 ROBINSON Marcelino Attn: Accounting ,[address] [facility], [place], [address] , [place] [facility] 22:29:17 Pneumonia 863129130 Completed 03/09/2018 ROBINSON Bullard Attn: Accounting ,[address] [facility], [place], [address] , [place] [facility] 22:29:07 Migraine 44601945 Active ROBINSON Garcia Attn: Accounting ,[address] [facility], [place], [address] , [place] [facility] 09:42:15 Eruption 641128177 Completed 03/09/2018 ROBINSON Lucas Attn: Accounting ,[address] [place], [address] , [place] [facility] 22:29:09 Benign essential hypertensi on 9264615 Active 2017 ROBINSON Marcelino Attn: Accounting ,[address] [facility], [place], [address] , [place] [facility] 15:30:10 Herpes simplex 15809986 Active 2018 ROBINSON Marcelino Attn: Accounting ,[address] [place], [address] , [place] [facility] 14:06:34 Herpetic jose 80360957 Active [address] Attn: Accounting ,[address] [place], [address] , [place] [facility] 14:05:37 Abnormal cervical Papanicola ou smear 359922047 Active [address] Attn: Accounting ,[address] [facility], [place], [address] , [place] [facility] 13:12:57 Coronary arterioscl erosis 68799676 Active [address] Attn: Accounting ,[address] [facility], [place], [address] , [place] [facility] 13:14:29 Essential hypertensi on 64561689 Active [address] Attn: Accounting ,[address] [facility], [place], [address] , [place] [facility] 5 10:33:26 Overweight 443796365 Active [address] Attn: Accounting ,[address] [facility], [place], [address] , [place] [facility] 3 13:14:35 Vitamin D deficiency 55192775 Active [address] Attn: Accounting ,[address] [facility], [place], [address] , [place] [facility] 3 13:14:42 Lumbago with sciatica 692587613 Active [address] Attn: Accounting ,[address] [facility], [place], [address] , [place] [facility] 3 13:15:27 Iron deficiency anemia 77649776 Active [address] Attn: Accounting ,[address] [facility], [place], [address] , [place] [facility] 3 13:17:34 Dyspnea on exertion 63128495 Active 2024 Rebeka Krishna MD Attn: Accounting ,[address] [facility], [place], [address] , [place] [facility] 16:53:32 Dysphagia 58311117 Active 2024 Rebeka Krishna MD Attn: Accounting ,[address] [facility], [place], [address] , [place] [facility] 5 15:42:09 Snoring 54689641 Active 2024 Rebeka Krishna MD Attn: Accounting ,[address] [facility], [place], [address] , [place] [facility] 15:42:36 Increased 63243485 Active 2024 Rebeka Krishna MD Attn: Accounting ,[address], [place], [address] , [place] [facility] 5 15:56:13 Problem Notes None recorded. Medical Equipment None Reported. Allergies Allergen ID Allergen Name Allergen Category Reaction Reaction Severity Criticality Documentation Date Start Date Code Code System Note Provider Name and Address Organization Details Recorded Time 888 aspirin medicatio n respirato ry distress severe Not available 06/06/2014 1191 RxNorm BRENDA [place], [place] [facility] 12:28:01 889 ibuprofen medicatio n respirato ry distress severe Not available 06/06/2014 5640 RxNorm Pat Jay MA null, [place] [facility] 12:28:01 Medications Name Sig Start Date Stop Date Status Note LastModified by Organization Details LastModified Time cyclobenzap rine 10 mg tablet Take 1 tablet twice a day by oral route as needed for 14 days. 09/07 completed Not Available Not Available Not Available amoxicillin 500 mg capsule Take 2 capsules every 12 hours by oral route for 10 days. 10/28 completed Not Available Not Available Not Available atorvastati n 40 mg tablet Take 1 tablet every day by oral route at bedtime for 90 days. 2024 active Not Available Not Available Not Avai lable azithromyci n 250 mg tablet 01/07 completed Not Available Not Available Not Available tizanidine 4 mg tablet active Not Available Not Available Not Available fluconazole 150 mg tablet TAKE ONE TABLET BY MOUTH ONCE A SINGLE DOSE active Not Available Not Available No t Available benzonatate 200 mg capsule Take 1 capsule 3 times a day by oral route as needed. 01/07 completed Not Available Not Available Not Available clarithromy clair 500 mg tablet Take 1 tablet every 12 hours by oral route for 10 days. 01/07 completed Not Available Not Available Not Available sumatriptan 100 mg tablet 100 mg PO x1; Max: 200 mg/24h; Info: may repeat dose x1 after 2h 2024 active Not Available Not Available Not Avai lable hydrocodone 5 mg-acetamin ophen 325 mg tablet 11/05 completed Not Available Not Available Not Available sumatriptan 25 mg tablet Take 1 tablet by oral route as needed, may repeat x1 after 2 hours. No more than 2 doses in 24 hours. 09/07 completed Not Available Not Available Not Available metronidazo le 0.75 % (37.5 mg/5 gram) vaginal gel INSERT 1 APPLICATO RFUL ONCE DAILY AT BEDTIME FOR 5 DAYS 04/25 completed Not Available Not Available Not Available ondansetron HCl 4 mg tablet Take 1 tablet every 8 hours by oral route as needed. 08/04 completed Not Available Not Available Not Available prednisone 20 mg tablet Take 1 tablet every day by oral route as directed for 7 days. 03/09 completed Not Available Not Available Not Available Doc-Q-Lace 100 mg capsule Take 1 capsule twice a day by oral route as needed. 08/04 completed Not Available Not Available Not Available topiramate 25 mg tablet Take 1 tablet every day by oral route for 30 days. 2024 active Not Available Not Available Not Avai lable metronidazo le 500 mg tablet 500 MG ORALLY TWICE A DAY FOR 7 DAYS 04/25 completed Not Available Not Available Not Available prochlorper azine maleate 10 mg tablet 01/04 completed Not Available Not Available Not Available acyclovir 400 mg tablet Take 1 tablet 3 times a day by oral route as directed for 7 days. 11/05 completed Not Available Not Available Not Available sulfamethox azole 800 mg-trimetho prim 160 mg tablet 09/17 completed Not Available Not Available Not Available tramadol 50 mg tablet Take 1 tablet every 8 hours by oral route as needed. 01/04 completed Not Available Not Available Not Available Tab-A-Rosalba/ Iron tablet Take 1 tablet every day by oral route for 100 days. active Not Available Not Available No t Available baclofen 20 mg tablet Take 1 tablet every 8 hours by oral route as needed. 10/28 completed Not Available Not Available Not Available losartan 100 mg-hydrochl orothiazide 25 mg tablet TAKE 1 TABLET BY MOUTH EVERY DAY 10/08 completed Not Available Not Available Not Available famotidine 20 mg tablet Take 1 tablet every other day by oral route for 90 days. 2024 active Not Available Not Available Not Avai lable hydrocortis one valerate 0.2 % topical ointment APPLY A THIN LAYER TO THE RIGHT SIDE OF NECK TWO TIMES DAILY FOR 5 DAYS 11/05 completed Not Available Not Available Not Available dicyclomine 20 mg tablet 11/05 completed Not Available Not Available Not Available amlodipine 10 mg tablet Take 1 tablet every day by oral route for 90 days. 2024 active Not Available Not Available Not Avai lable hydrocortis one 1 % topical cream APPLY A THIN LAYER TO THE AFFECTED AREA(S) BY TOPICAL ROUTE 2 TIMES PER DAY FOR TWO WEEKS 09/07 completed Not Available Not Available Not Available cephalexin 500 mg capsule Take 1 capsule every 8 hours by oral route as directed for 7 days. 03/09 completed Not Available Not Available Not Available ferrous sulfate 325 mg (65 mg iron) tablet Take 1 tablet every day by oral route as directed for 30 days. 2024 active Not Available Not Available Not Avai lable ibuprofen 400 mg tablet Take 1 tablet every 4 hours by oral route as needed. 2013 active Not Available Not Available Not Avai lable hydrochloro thiazide 12.5 mg capsule TAKE 1 CAPSULE BY MOUTH EVERY DAY DIRECTED 10/08 completed Not Available Not Available Not Available omeprazole 20 mg capsule,del ayed release TAKE 1 CAPSULE BY MOUTH EVERY DAY 11/13 completed Not Available Not Available Not Available hydroxyzine HCl 25 mg tablet TAKE 1 TABLET THREE TIMES DAILY NEEDED FOR ITCHING 11/13 completed Not Available Not Available Not Available codeine 10 mg-guaifene sin 100 mg/5 mL oral liquid 11/05 completed Not Available Not Available Not Available metoprolol succinate ER 25 mg tablet,exte nded release 24 hr TAKE 1 TABLET BY MOUTH EVERY DAY 10/08 completed Not Available Not Available Not Available clobetasol 0.05 % topical ointment PLEASE SEE ATTACHED FOR DETAILED DIRECTION S 10/08 completed Not Available Not Available Not Available hydrocortis one 0.5 % topical ointment APPLY A THIN LAYER TO THE AFFECTED AREA(S) BY TOPICAL ROUTE 2 TIMES PER DAY to rt neck 11/05 completed Not Available Not Available Not Available methylpredn isolone 4 mg tablets in a dose pack Take by oral route as directed on package 01/07 completed Not Available Not Available Not Available losartan 50 mg-hydrochl orothiazide 12.5 mg tablet TAKE 1 TABLET BY MOUTH EVERY DAY 04/25 completed Not Available Not Available Not Available ketoconazol e 2 % topical cream APPLY TOPICALLY TO AFFECTED AREA EVERY DAY 10/08 completed Not Available Not Available Not Available ondansetron 4 mg disintegrat ing tablet 11/05 completed Not Available Not Available Not Available fluticasone propionate 50 mcg/actuati on nasal spray,suspe nsion 1 spray in each nostril twice daily as needed for nasal congestio n 2024 active Not Available Not Available Not Avai lable sertraline 50 mg tablet Take 1 tablet every day by oral route for 90 days. 2024 active Not Available Not Available Not Avai lable loratadine 10 mg tablet TAKE 1 TABLET BY MOUTH EVERY DAY 10/08 completed Not Available Not Available Not Available naproxen 500 mg tablet Take 1 tablet twice a day by oral route as needed for 30 days. 12/20 completed Not Available Not Available Not Available Tylenol Extra Strength 500 mg tablet Take 2 tablets every 6 hours by oral route for 14 days. 2019 active Not Available Not Available Not Avai lable Ventolin HFA 90 mcg/actuati on aerosol inhaler 11/05 completed Not Available Not Available Not Available omeprazole 20 mg tablet,raghu yed release Take one tablet daily 01/07 completed Not Available Not Available Not Available Tab-A-Rosalba Multivitami n w-iron 18 mg-400 mcg tablet TAKE 1 TABLET BY MOUTH EVERY DAY active Not Available Not Available No t Available Vitals Date Recorded Body weight Body mass index (BMI) Body height Systolic And Diastolic Provider Name and Address Organization Details Last Updated DateTime 07/29/2023 38619.11 g 29 kg/m2 162.56 cm 126/74 mm[Hg] Yoselin Vazquez [place] - [facility] 07/29/2023 10:58:57 Date Recorded Systolic And Diastolic Provider Name and Address Organization Details Last Updated DateTime 01/10/2024 138/86 mm[Hg] [address] Attn: Accounting[address] [place], [address], [facility] 01/12/2024 11:09:30 Date Recorded Body height Body mass index (BMI) Body weight Heart rate Oxygen saturation Oxygen saturation in Arterial blood by Pulse oximetry Provider Name and Address Organization Details Last Updated DateTime 162.56 cm 28.5 kg/m2 15138.3 3 g 75 /min 99 % 99 % Yoselin Vazquez MA [facility] 4 15:11:05 Date Recorded Heart rate Systolic And Diastolic Provider Name and Address Organization Details Last Updated DateTime 02/01/2025 60 /min 135/86 mm[Hg] [address] Attn: Accounting[address] [place], [address], [facility] 02/01/2025 14:18:23 Date Recorded Body height Body mass index (BMI) Body weight Oxygen saturation Oxygen saturation in Arterial blood by Pulse oximetry Provider Name and Address Organization Details Last Updated DateTime 02/01/2025 162.56 cm 29.7 kg/m2 27093.4 8 g 97 % 97 % Yoselin Vazquez MA [facility] 5 14:14:42 Date Recorded Body height Body mass index (BMI) Body weight Heart rate Oxygen saturation Oxygen saturation in Arterial blood by Pulse oximetry Systolic And Diastolic Provider Name and Address Organization Details Last Updated DateTime 4 162.56 cm 27.8 kg/m2 53357.9 6 g 71 /min 98 % 98 % 128/86 mm[Hg] Yoselin Vazquez MA [facility] 4 10:32:22 Date Recorded Body height Body mass index (BMI) Body weight Body temperature Heart rate Oxygen saturation Oxygen saturation in Arterial blood by Pulse oximetry Systolic And Diastolic Provider Name and Address Organization Details Last Updated DateTime 162.56 cm 30.4 kg/m2 88141.8 5 g 98 [degF] 71 /min 98 % 98 % 148/95 mm[Hg] Padmaja Magaña MA [facility] 16:06:34 Social History Question Answer Notes LastModified by Organizat ion Details LastModified Time Tobacco Smoking Status Former Smoker Tyra ROBINSON Perkins Attn: [place], [address], [facility] - [facility] 08/04/2018 10:23:19 What Is Your Level Of Caffeine Consumption? None Information not available 03/19/2020 In The 14 Days Before Symptom Onset, Have You Had Close Contact With A Laboratory-confirm ed COVID-19 While That Case Was Ill? No Information n ot available 01/13/2022 In The 14 Days Before Symptom Onset, Have You Had Close Contact With A Person Who Is Under Investigation For COVID-19 While That Person Was Ill? No Information not available 01/13/2022 Have You Been To An Area Known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
--- OUTSIDE RECORDS SUMMARY | 2025-05-28 14:52 | XMS_ITS | Clinical Summary ---
Author Organization [facility] Address [facility] [place] [address] Care Team Providers Care Refuge Worker Name Role Phone Shantal Mann PA-C Primary Care Provider [phone] Social History Tobacco Use Types Packs/Day Years Used Date Smoking Tobacco: Never Assessed Comments Unknown Sex and Gender Information Value Date Recorded Sex Assigned at Not on file Legal Sex Female 2:58 PM CDT Gender Identity Not on file Sexual Orientation Not on file Plan of Treatment Health Maintenance Due Date Last Done Comments Cervical Cancer Screening Pa p Smear (Age 30 to 64) Every 3 Years 1978 Colorectal Cancer Screening Colonoscopy (10 Years) 1978 Annual Physical 1981 DTaP, Tdap and Td Vaccines ( 2 - Tdap) 08/14/1989 08/13/1989 Hepatitis C 02/15/1996 Hepatitis B Vaccines (1 of 3 - 19+ 3-dose series) 1997 Cervical Cancer Screening Pa p with HPV Testing (Age 30 to 64) Every 5 Years 02/15/2008 Cervical Cancer Screening with HPV 02/15/2008 Mammogram Screening 2018 COVID-19 Vaccine (2024-2 6 season) 2025 Influenza Adult (#1) 2025 Hepatitis A Vaccines Aged Out No long er eligible based on patient's age to complete this topic Meningococcal B Vaccine Aged Out No l onger eligible based on patient's age to complete this topic Meningococcal Vaccine Aged Out No gerald michael eligible based on patient's age to complete this topic Pneumococcal Vaccine: Pediat rics (0 to 5 Years) and At-Risk Patients (6 to 49 Years) Aged Out No longer eligi ble based on patient's age to complete this topic RSV Immunizations Under 20 Months Aged Out No longer eligible based on patient's age to complete this topic Insurance [facility] Care Teams Refuge Worker Relationship Specialty Start Date End Date Shantal Mann PA-C [address] [place] [id number] PCP - General NURSE PRACTITIONER 04/26/20
[2025-05-28 16:19] LABS: Hematocrit 37.5 % (37.0-47.0); Hemoglobin 11.5 g/dL (12.0-15.0); Immature Granulocyte Percent A 0.3 % (0-0.5); Lymphocytes Absolute Auto 2.70 K/mm3 (0.9-3.2); Mean Corpuscular HGB Conc 30.7 g/dl (32-36); Mean Corpuscular Hemoglobin 26.6 pg (26-34); Mean Corpuscular Volume 86.6 fl (80-100); Nucleated Red Blood Cells Absolute Auto 0.000 K/mm3 (0.0-0.012); Nucleated Red Blood Cells Perc 0.0 % (0.0-0.2); Platelet Count Result 211 k/mm3 (150-375); Red Blood Count 4.33 M/mm3 (4.2-5.4); White Blood Count 6.3 K/mm3 (4.5-10.0)
[2025-05-28 16:25] LABS: Hemoglobin A1C 5.8 % (<5.7)
[2025-05-28 16:28] LABS: Alanine Aminotransferase 19 U/L (6-35); Albumin Level 4.5 g/dL (3.5-5.1); Alkaline Phosphatase 59 U/L (38-126); Anion Gap 6 mmol/L (4-12); Aspartate Amino Transferase 28 U/L (14-36); Bilirubin,Total 0.8 mg/dL (0.2-1.3); Blood Urea Nitrogen 11 mg/dL (7-17); Calcium 8.8 mg/dL (8.4-10.2); Carbon Dioxide 27 mmol/L (22-30); Chloride 108 mmol/L (98-107); Cholesterol 130 mg/dL (0-200); Estimated Glomerular Filt Rate > 60; Glucose 84 mg/dL (65-110); HDL Direct 38 mg/dL; Potassium 3.6 mmol/L (3.4-5.0); Sodium 141 mmol/L (137-145); Total Protein 7.7 g/dL (6.3-8.2); Triglycerides 99 mg/dL (<150)
[2025-05-28 16:37] LABS: MALB Creatinine Ratio 8.3 mg/g (0-30)
[2025-05-28 17:00] LABS: Thyroid Stimulating Hormone Reflex 1.110 uIU/mL (0.465-4.68)
[2025-05-28 17:41] LABS: Vitamin B12 519.0 pg/mL (239-931)
== END 2025-05-28 14:46 | disposition home or self-care (01) ==
LOC: ANHLAB 14:49
PROVIDERS: PCP Physician Assistant; Visit Provider Internal Medicine
DX: Z00.00 Encounter for general adult medical examination without abnormal findings (principal)
CPT/HCPCS: 36415; 80053; 80061; 82043; 82306; 82607; 82746; 83036; 84443; 85025